=== PATIENT | female | born 1975 | race Caucasian/White ===

== ENCOUNTER 2022-12-10 15:26 | Outpatient (REF) | payer OTHER, SELFPAY ==
--- NOTE | ~2022-12-10 | XR_ITS ---
EXAMINATION: XR CHEST CLINICAL INFORMATION: J20.9 - Acute bronchitis, unspecified COMPARISON: None available. TECHNIQUE: 2 views of the chest were obtained. FINDINGS: The lungs are clear. There is no hyperinflation or coarsening of the bronchiolar markings, airspace consolidation, groundglass opacity. The costophrenic sulci are well-defined. The heart is normal in size. The hilar and mediastinal contours are normal. No visible acute bony abnormality. XR/XR chest 2V IMPRESSION: Lungs clear. No hyperinflation.
== END 2022-12-10 15:27 | disposition home or self-care (01) ==
LOC: HO.XRAY 15:26
PROVIDERS: Visit Provider Nurse Practitioner Family
DX: J20.9 Acute bronchitis, unspecified (principal)
CPT/HCPCS: 71046

== ENCOUNTER 2022-12-11 11:49 | Outpatient (REF) | payer OTHER, SELFPAY ==
[2022-12-11 13:02] LABS: Influenza A PCR NEGATIVE (Negative); Influenza B PCR NEGATIVE (Negative); Resp Syncy Virus RNA Qual PCR NEGATIVE (Negative); SARS COV2 PCR INHOUSE NEGATIVE (Negative)
== END 2022-12-11 11:50 | disposition home or self-care (01) ==
LOC: HO.LNP 11:49
PROVIDERS: Visit Provider Nurse Practitioner Family
DX: J20.9 Acute bronchitis, unspecified (principal); Z20.822 Contact with and (suspected) exposure to COVID-19
CPT/HCPCS: 0241U

== ENCOUNTER 2024-11-13 13:52 | Outpatient (AMB) | payer OTHER, SELFPAY ==
--- NOTE | 2024-11-13 13:59 | A.OFFPC_ITS ---
Vital Signs 11/13/24 14:31 Height 5 ft 6.3 in Weight 212 lb 8 oz BMI 34.0 BP 98/62 Blood Pressure Location Rt brachial Position Sitting Respiration 14 Pulse 78 Pulse Source Pulse Oximeter Pulse Oximetry (%) 99 Oxygen Delivery Method Room Air Intake Visit Reasons: EstablishCareNP Intake Note: New patient visit. Sliver Handler Required: No Allergies No Known Allergies Allergy (Verified 11/13/24 14:00) Tobacco use date assessed: 11/13/24 Dental Screening Dental Screen Date: 11/13/24 Did you have a dental visit in the last 12 months?: Yes Did you have a dental problem in the last 6 months where you did not have access to dental care?: No Was dental information given to patient?: Patient has dentist HPI HPI Comments History of Present Illness Details This is a 49-year-old female with a past medical history of prediabetes, obesity, low vitamin-D, depression with anxiety, RLS, concussion, chronic neck pain, chronic headaches, sleep apnea and mild memory impairment presenting to [facility]. She transferred from [facility]. Records transfer pending. Prediabetes, obesity-patient was diagnosed with prediabetes in the fall of 2023. She tried metformin, but it was ineffective. Her hemoglobin A1c today is 5.7%. The patient was on compounded semaglutide, but it was too expensive. She is seeking a prescription for another GLP 1. She is doing yoga classes. She has decreased portion sizes and carbohydrates and sugars in her diet. She has not been able to lose weight successfully despite doing this for greater than 6 months. She also endorses a history of hyperlipidemia. She is not on medications for this. She denies history of thyroid problems. The patient has anxiety and depression , and she is treated with sertraline and bupropion. She is not sure if bupropion is making a big difference, but she does not want to increase it at this time. She discusses that there are some intimacy issues in her marriage, and she has a child with special needs. 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 Patient reports she was evaluated by Dr. Arechiga after a concussion 4 years ago. She had head trauma after a gate fell on her head. She says since then she has dealt with some mild memory impairment. She also sees Dr. Roque at [facility] for treatment of chronic headaches and neck pain. She has tried muscle relaxers. She was recently prescribed nabumetone as needed. She admits that she should ?be wearing glasses?, and she has obstructive sleep apnea, but she has not been using her CPAP recently. Patient reports she had an x-ray of the cervical spine which showed degenerative disc disease. She did physical therapy which helped. She is going to return to physical therapy again. She takes gabapentin 100 mg q.i.d. for restless leg and head and neck pain. She is followed by [facility]. ROS: Constitutional: No unexplained weight loss, fever, chills or night sweats. Eyes: No vision changes, blurry vision, double vision Neurologic: No syncope, tremors, seizures Musculoskeletal: see HPI Physical exam: Constitutional: Alert, in no distress. Head: Normocephalic. Neck: Supple, Full range of motion. No lymphadenopathy. No palpable thyroid masses. Respiratory: Clear to auscultation. Cardiovascular: S1 S2 regular. No murmurs. Neurologic: No focal neurological deficits. Psychiatric: Normal mood and affect [facility] Medical History (Updated 11/14/24 @ 09:15 by ELISSA Richmond) Anxiety and depression Concussion Mild memory disturbance Hyperlipidemia Chronic headaches Chronic neck pain Pre-diabetes Obesity Low vitamin D level Surgical History H/O dilation and curettage Family History Mother Anxiety Father Diabetes HTN (hypertension) Heart disease Thyroid disease Brother Diabetes Other FH: mental illness Substance abuse Social History (Updated 11/13/24 @ 16:37 by Yaneli Driver CMA) Housing: House Alcohol intake: current Patient Tobacco Use Status: Former Tobacco user Cigarette Packs Per Day: 0.5 Years Smoked: 15 e-Cigarette/Vaping Use: Never Used Second Hand Smoke Exposure: No service: No 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 Had a concussion a couple years ago.) Hearing needs: No Vision needs: Yes (glasses) Questionnaire PHQ-9 Over the last 2 weeks, how often have you been bothered by any of the following problems? 1. Little interest or pleasure in doing things: not at all 2. Feeling down, depressed, or hopeless: not at all 3. Trouble falling or staying asleep, or sleeping too much: several days 4. Feeling tired or having little energy: several days 5. Poor appetite or overeating: several days 6. Feeling bad about yourself - or that you are a failure or have let yourself or your family down: not at all 7. Trouble concentrating on things, such as reading the newspaper or watching television: not at all 8. Moving or speaking so slowly that other people could have noticed. Or the op posite - being so fidgety or restless that you have been moving around a lot more than usual: several days 9. Thoughts that you would be better off or of hurting yourself in some way: not at all Total score: 4 Depression Screening Interpretation: Positive Depression Screening Follow-up: Existing condition and In treatment Depression Screening Done: Yes 41412 - PHQ-9 Billing: Yes Source: Developed by Drs. Ad Hudson, Jailene Bell, Kevin López and colleagues, with an educational kennedy from [employer]. Thrive Questionnaire Date Thrive assessed: 11/13/24 I am a: Patient What is your living situation today?: I have a steady place to live Within the past 12 months, did the food you bought not last and you didn't have the money to get more?: Never true Within the past 12 months, did you worry whether your food would run out before you got money to buy more?: Never true Do you have trouble paying for medicines?: No Do you have trouble getting transportation to medical appointments?: No Do you have trouble paying your heating and electricity bill?: No Do you have trouble taking care of your child, family member or friend?: I choose not to answer this question Do you have trouble with day-to-day activities such as bathing, preparing meals, shopping, managing finances, etc.?: No Are you currently unemployed and looking for a job?: No Are you interested in more education?: Yes Please select the resources that you would like help with: Care for elder or disabled Currently or been in a relationship where the following occur: No concerns reported THRIVE Score: 0 AUDIT C Alcohol Use Questionnaire (AUDIT-C) 1. How often do you have a drink containing alcohol?: Monthly or less 2. How many drinks containing alcohol do you have on a typical day when you are drinking?: 1 or 2 3. How often do you have six or more drinks on one occasion?: Never Total Score: 1 CHING-7 AMB Questionnaire CHING-7 Date CHING - 7 assessed: 11/13/24 Feeling nervous, anxious, or on edge: 1 = Several days Not being able to stop or control worryin = Several days Worrying too much about different things: 1 = Several days Trouble relaxin = Several days Being so restless that it is hard to sit still: 0 = Not at all Becoming easily annoyed or irritable: 1 = Several days Feeling afraid as if something awful might happen: 0 = Not at all Total CHING-7 score (0-4 normal; 5-9 mild; 10-14 moderate; 15-21 severe): 5 Source: Developed by Drs. Ad Hudson, Jailene Bell, Kevin López and colleagues, with an educational kennedy from [employer]. CHING-7 Assessment Billing CHING-7 Assessment Tool: CHING-7 Assessment 62091 Physical exam (Primary Care) Vital Signs: Last Vital Signs Pulse 78 11/13/24 14:31 Resp 14 11/13/24 14:31 BP 98/62 11/13/24 14:31 Pulse Ox 99 11/13/24 14:31 Oxygen Delivery Method Room Air 11/13/24 14:31 BMI result Body Mass Index 34.0 Tobacco/Smoking Status: Tobacco use Status Tobacco use date assessed 11/13/24 11/13/24 14:06 Patient Tobacco Use Status Former Tobacco user 11/13/24 14:00 e-Cigarette/Vaping Use Never Used 11/13/24 14:16 PHQ-9: PHQ-9 Score PHQ-9: Total score 4 11/14/24 09:18 Depression Screening Interpretation: Positive Depression Screening Follow-up: Existing condition and In treatment Thrive Assessment: Date of Thrive Assessment Date Thrive assessed 11/13/24 11/13/24 16:37 Currently or been in a relationship where the following occur: No concerns reported Coding Level of Care Code New Pt Level 4 (08902) Complex EM visit Add On G2211 Diagnoses Mild memory disturbance R41.3 Concussion S06.0XAA Encounter type: sequela Hyperlipidemia, unspecified hyperlipidemia type E78.5 Hyperlipidemia type: unspecified Chronic post-traumatic headache, not intractable G44.329 Headache type: post-traumatic Intractability: not intractable Chronic neck pain M54.2; G89.29 Pre-diabetes R73.03 Obesity E66.9 Obesity classification: adult class 1 (BMI 30 - 34.9) Obesity type: due to excess calories Serious obesity comorbidity presence: with serious comorbidity Low vitamin D level R79.89 Additional Codes CHING-7 Assessment Billing - CHING-7 Assessment Tool: CHING-7 Assessment 08448 ([id number]) PHQ-9 - 43907 - PHQ-9 Billing: Yes ([id number]) Assessment & Plan Assessment & Plan (1) Mild memory disturbance: Code(s): R41.3 - Other amnesia Category: Medical (2) Concussion: Code(s): S06.0XAA - Concussion with loss of consciousness status unknown, initial encounter Category: Medical Qualifiers: Encounter type: sequela (3) Hyperlipidemia: Code(s): E78.5 - Hyperlipidemia, unspecified Category: Medical Qualifiers: Hyperlipidemia type: unspecified Qualified Code(s): E78.5 - Hyperlipidemia, unspecified (4) Chronic headaches: Code(s): R51.9 - Headache, unspecified; G89.29 - Other chronic pain Category: Medical Qualifiers: Headache type: post-traumatic Intractability: not intractable Qualified Code(s): G44.329 - Chronic post-traumatic headache, not intractable (5) Chronic neck pain: Code(s): M54.2 - Cervicalgia; G89.29 - Other chronic pain Category: Medical (6) Pre-diabetes: Code(s): R73.03 - Prediabetes Category: Medical (7) Obesity: Code(s): E66.9 - Obesity, unspecified Category: Medical Qualifiers: Obesity classification: adult class 1 (BMI 30 - 34.9) Obesity type: due to excess calories Serious obesity comorbidity presence: with serious comorbidity (8) Low vitamin D level: Code(s): R79.89 - Other specified abnormal findings of blood chemistry Category: Medical Plan In summary this is a 49-year-old female who presented to [facility]. Records transfer pending. The patient reports she felt much better on a GLP 1, but compounded semaglutide was too expensive. Given prediabetes and hyperlipidemia she is a good candidate for a GLP 1. She denies contraindications to this type of medication. I will submit that bound to the pharmacy. She will also have new fasting labs completed. We discussed lifestyle modifications including restricting portion sizes, following a low carbohydrate, low sugar diet, avoiding alcohol and exercising regularly. I spoke with her about referral to behavioral health for Psychology and psychiatric evaluation. Anxiety and depression may be contributing to her memory concerns. She also suffered a concussion in the past. She also may have undiagnosed ADHD. No doubt lack of using a CPAP and wearing her glasses regularly as contributing to some of her symptoms. Patient is going to try using CPAP and glasses regularly. She defers referral today, but we will revisit this again at her follow up appointment. She will continue bupropion and sertraline for now. I also discussed referral to the headache clinic. We discussed that headaches are likely multifactorial in her case. She is going to think about this. She is seeing Dr. Roque currently. Reviewed the importance of sleep, hydration and stress reduction when possible. She will have labs completed. She will follow up with me in 6 weeks for re-evaluation. Orders: Orders Comprehensive Met. Panel 11/13/24 E66.9 - Obesity, unspecified, R73.03 - Prediabetes, R79.89 - Other specified abnormal findings of blood chemistry Vitamin D 25-OH (D2 and D3) 11/13/24 E66.9 - Obesity, unspecified, M85.80 - Other specified disorders of bone density and structure, unspecified site, R73.03 - Prediabetes, R79.89 - Other specified abnormal findings of blood chemistry Vitamin B12 11/13/24 Z91.89 - Other specified personal risk factors, not elsewhere classified Lipid Panel 11/13/24 E66.9 - Obesity, unspecified, E78.5 - Hyperlipidemia, unspecified, R73.03 - Prediabetes, R79.89 - Other specified abnormal findings of blood chemistry TSH reflex Free T4 11/13/24 E66.9 - Obesity, unspecified, R73.03 - Prediabetes, R79.89 - Other specified abnormal findings of blood chemistry Complete Blood Count no Diff 11/13/24 E66.9 - Obesity, unspecified, R73.03 - Prediabetes, R79.89 - Other specified abnormal findings of blood chemistry Hemoglobin A1c 11/13/24 E11.9 - Type 2 diabetes mellitus without complications, E66.9 - Obesity, unspecified, R73.03 - Prediabetes, R79.89 - Other specified abnormal findings of blood chemistry Medications: New tirzepatide (weight loss) (Zepbound) for 4 weeks 2.5 mg (0.5 mL) subcut QWEEK 2 mL 0RF
[2024-11-13 14:31] VITALS: BP 98/62; PULSE 78; RESP 14; O2SAT 99; BMI 34.0
--- OUTSIDE RECORDS SUMMARY | 2024-11-13 16:25 | XMS_ITS | Continuity of Care Document ---
Author Name [facility] Organization [facility] Care Team Providers Care Mobile Home Park Manager Name Role Phone [facility] Unavailable Unavailable Immunizations Combined list of available immunizations from the Department of Defense and Veterans Affairs facilities. Immunization Series Date Given Administered By Site Reaction Lot Number CVX Code Drug Casing Mixer Status Comments Source COVID-19 (MODERNA), MRNA, LNP-S, PF, 100 MCG/0.5 ML DOSE 2 2020 207 complet ed [facility] JERONIMO-19 (MODERNA), MRNA, LNP-S, PF, 100 MCG/0.5 ML DOSE 1 2020 207 complet ed [facility]
--- OUTSIDE RECORDS SUMMARY | 2024-11-13 16:25 | XMS_ITS | Continuity of Care Document ---
Author Organization [facility] Address [address] [place] [id number]- Care Team Providers Care Clinical Reviewer Name Role Phone Donny NICHOLAS, Melina Tran Primary Care Physician Encounter [facility] Date(s): 09/22/24 - 10/22/24 [facility] and [address] [address]- Attending Physician: Cassie Casillas Admitting Physician: Cassie Casillas Referring Physician: Admtr [id number] Encounter Type: Triage Allergies, Adverse Reactions, Alerts No Known Medication Allergies Substance Criticality Severity Reaction Reaction Severity Status Latex Active Immunizations Given and Recorded Vaccine Date Status Refusal Reason influenza virus vaccine, inactivated 07/30/24 Lambert rded influenza virus vaccine, inactivated 07/11/21 Lambert rded influenza virus vaccine, inactivated 06/28/18 Lambert rded influenza virus vaccine, inactivated 06/26/17 Lambert rded SARS-CoV-2(COVID-19)mRNA-LNP vac([id number]) 07/30/24 Recorded SARS-CoV-2 (COVID-19) mRNA-1273 vaccine 08/01/21 R ecorded SARS-CoV-2 (COVID-19) mRNA-1273 vaccine 10/15/20 R ecorded SARS-CoV-2 (COVID-19) mRNA-1273 vaccine 09/17/20 R ecorded tetanus/diphtheria/pertussis, acel(Tdap) 06/28/18 Recorded tetanus/diphtheria/pertussis, acel(Tdap) 1 08/09/12 Given tetanus/diphtheria/pertussis, acel(Tdap) 07/18/07 Recorded tetanus-diphtheria toxoids (Td) 11/11/98 Recorded 1Admin Note: VIS sheet dated 10/06/2011 Medications buPROPion 150 mg/24 hours (XL) oral tablet, extended release 1 tablet, By Mouth, Every 24 hours, # 90 tablet, 1 Refills, Maintenance, 08/22/24 1:59:00 PM EST, [facility] #[id number], 1 tablet By Mouth Every 24 hours, 170, cm, 07/20/24 15:22:00 EST, Height,98.8, kg, 12/26/23 8:36:00 EDT, Dry Weight Start Date: 08/22/24 Status: Ordered Quantity: 90.0 Unit: tablet Repeat number: 2 Estradiol Patch 0.025 mg/24 hours weekly transdermal film, extended release APPLY 1 PATCH TOPICALLY TO THE SKIN EVERY WEEK Start Date: 08/28/24 Status: Ordered Repeat number: 1 gabapentin 100 mg oral capsule 100 mg, 1, capsule, By Mouth, 4 times a day, # 120 capsule, Refills 1, Tot. Refills 1, Maintenance,10/10/24 3:19:00 PM EST, Route to Pharmacy Electronically, [facility] #[id number], Partial fill upon patient request if the prescription is for a schedule II opioid drug., 170, cm, 09/22/24 15:12:00 EST, Height, 98.8, kg, 12/26/23 8:36:00 EDT, Dry Weight Start Date: 10/10/24 Stop Date: 12/09/24 Status: Ordered Quantity: 120.0 Unit: capsule Repeat number: 2 Mounjaro 2.5 mg/0.5 mL subcutaneous solution = 2.5 mg, Subcutaneous Injection, Every week, rotate injection sites, # 4 each, 0 Refills, Maintenance, 09/25/24 4:39:00 PM EST, Solution, [facility] #[id number], Partial fill upon patient requestif the prescription is for a schedule II opioid drug., 170, cm, 09/22/24 15:12:00 EST, Height, 98.8, kg, 12/26/23 8:36:00 EDT, Dry Weight Start Date: 09/25/24 Status: Ordered Quantity: 4.0 Unit: each Repeat number: 1 Indication: Prediabetes nabumetone 500 mg oral tablet 1 tablet = 500 mg, By Mouth, 2 times a day, # 60 tablet, 2 Refills, Maintenance, 09/22/24 4:15:00 PMEST, Tablet, [facility] #[id number], Partial fill upon patient request if the prescription is for a schedule II opioid drug., 170, cm, 09/22/24 15:12:00 EST, Height, 98.8, kg, 12/26/23 8:36:00 EDT, Dry Weight Start Date: 09/22/24 Status: Ordered Quantity: 60.0 Unit: tablet Repeat number: 3 progesterone 100 mg oral capsule TAKE 1 CAPSULE BY MOUTH EVERY DAY Start Date: 08/28/24 Status: Ordered Repeat number: 1 sertraline 100 mg oral tablet 2 tablet, By Mouth, Daily, # 180 tablet, 1 Refills, Maintenance, 06/16/24 12:28:00 PM EDT, [facility] #[id number], 170, cm, 06/16/24 12:01:00 EDT, Height, 98.8, kg, 12/26/23 8:36:00 EDT, Dry Weight Start Date: 06/16/24 Status: Ordered Quantity: 180.0 Unit: tablet Repeat number: 2 Problem List Condition Confirmation Course Effective Dates Status Health Status Informant Chronic headache Confirmed Active Depression Confirmed Active Fatigue Confirmed Active CHING (generalized anxiety disorder) Confirmed Active Hypercholesteremia Confirmed Active Mixed hyperlipidemia Confirmed Active Neck pain Confirmed Active Obese class I Confirmed Active Obese Confirmed Active Post concussion syndrome Confirmed Active Prediabetes Confirmed Active Serrated polyp of colon 1 Confirmed 12/03/22 Active Dry eye syndrome Confirmed Active 1repeat screening colonoscopy in 2027 Social History Social History Type Response Smoking Status Former smoker, quit more than 30 days ago entered on: 10/21/18 Sex Sex Representation Female (finding) Hospital Progress note * Nia Archer: PERFORM, SIGN, VERIFY Event Display: Progress Note Hospital Authored Date: [id number] Patient: ELLIOT MORA Age: 44 years Sex: Female : 1975 Associated Diagnoses: None Author: Nia Archer 11/23/2019 To Whom it May Concern The above patient is currently under my care for a concussion. She is unable to participate in PT as it has been placed on hold due to Stay at Home order placed by [employer]. [employer] and won't be able to participate in PT until 01/01/20 or later. Sincerely, Nia Dietrich PA-C [facility] [address] [place] [address], [address] [place] [address] Patient Care team information Care Team Personnel Name: Nadir Peralta RN Position: [facility] AMB Nurse Member Role: Primary Care Nurse Name: Nini FRENCH, González Rodriguez Position: [facility] ED RN W/OE and Tasks Member Role: Primary Care Nurse Name: Donny NICHOLAS, Melina Tran Position: [facility] PCO Associate Professional Member Role: PCP Address: [address] [place] [address] [address] Telecom: Care Team Related Persons Name: TYRONE MORA Name: NANCY NAYLOR Insurance Providers Guarantor name: ELLIOT MORA Health Plan Information #: 1 Payer: [employer] PPO Member Number: NA Policy Number: NA Group Number: [id number]
== END 2024-11-13 15:06 | disposition home or self-care (01) ==
PROVIDERS: PCP Physician Assistant Medical; Visit Provider Physician Assistant Medical
DX: R41.3 Other amnesia (principal); S06.0XAA Concussion with loss of consciousness status unknown, initial encounter; E66.9 Obesity, unspecified; Z68.34 Body mass index [BMI] 34.0-34.9, adult; E78.5 Hyperlipidemia, unspecified; G44.329 Chronic post-traumatic headache, not intractable; M54.2 Cervicalgia; G89.29 Other chronic pain; R73.03 Prediabetes; R79.89 Other specified abnormal findings of blood chemistry

== ENCOUNTER → 2024-11-13 13:52 | Outpatient (BNVA) | payer OTHER, SELFPAY | PROVIDERS: PCP Physician Assistant Medical; Visit Provider Physician Assistant Medical | DX: R41.3 Other amnesia (principal); S06.0XAA Concussion with loss of consciousness status unknown, initial encounter; E78.5 Hyperlipidemia, unspecified; G44.329 Chronic post-traumatic headache, not intractable; G89.29 Other chronic pain; M54.2 Cervicalgia; R73.03 Prediabetes; E55.9 Vitamin D deficiency, unspecified; E66.9 Obesity, unspecified; Z68.34 Body mass index [BMI] 34.0-34.9, adult | CPT/HCPCS: 96127 ==

== ENCOUNTER 2024-11-23 08:16 | Outpatient (REF) | payer OTHER, SELFPAY ==
--- OUTSIDE RECORDS SUMMARY | 2024-11-23 08:38 | XMS_ITS | Continuity of Care Document ---
Author Name [facility] Organization [facility] Care Team Providers Care Quality Improvement Consultant Name Role Phone [facility] Unavailable Unavailable Immunizations Combined list of available immunizations from the Department of Defense and Veterans Affairs facilities. Immunization Series Date Given Administered By Site Reaction Lot Number CVX Code Drug Compilation Clerk Status Comments Source COVID-19 (MODERNA), MRNA, LNP-S, PF, 100 MCG/0.5 ML DOSE 2 2020 207 complet ed [facility] JERONIMO-19 (MODERNA), MRNA, LNP-S, PF, 100 MCG/0.5 ML DOSE 1 2020 207 complet ed [facility]
[2024-11-23 11:45] LABS: Hematocrit 41.8 % (37.0-47.0); Hemoglobin 13.1 g/dl (12.0-16.0); Mean Corpuscular HGB Conc 31.3 g/dl (31.0-35.0); Mean Corpuscular Hemoglobin 27.6 pg (27.0-33.0); Mean Platelet Volume 11.2 fL (9.4-12.3); Platelet Count 130 X10*3/uL (160-400); Red Blood Count 4.75 X10*6/uL (4.20-5.50); Red Cell Distribution Width 13.9 % (11.0-16.0); White Blood Count 3.7 X10*3/uL (4.8-10.8)
[2024-11-23 11:47] LABS: Estimated Average Glucose 117 mg/dL; Hemoglobin A1c % 5.7 % (<6.0)
[2024-11-23 12:24] LABS: Alanine Aminotransferase 32 U/L (0-31); Albumin Level 4.2 g/dL (3.5-5.0); Alkaline Phosphatase 92 U/L (39-117); Anion Gap 11 (12-20); Aspartate Amino Transferase 27 U/L (5-31); Bilirubin Total 0.3 mg/dL (0.0-1.0); Blood Urea Nitrogen 17 mg/dL (9-16); Calcium 9.3 mg/dL (8.4-10.2); Carbon Dioxide 29 mmol/L (22-29); Chloride 109 mmol/L (96-108); Cholesterol 226 mg/dL (<200); Estimated Glomerular Filt Rate 48; Glucose Random 100 mg/dL (60-115); HDL Cholesterol 45 mg/dL (>40); LDL Cholesterol Calculated 116 mg/dL (<100); Potassium 4.5 mmol/L (3.3-5.1); Sodium 144 mmol/L (135-145); Total Protein 7.3 g/dL (6.5-8.0); Triglycerides 327 mg/dL (<150)
[2024-11-23 12:28] LABS: TSH reflex Free T4 2.44 uIU/mL (0.32-4.0)
[2024-11-23 12:32] LABS: Vitamin B12 318 pg/mL (200-900)
[2024-11-28 06:24] LABS: Vitamin D 25-OH, D2 <4 ng/mL; Vitamin D 25-OH, D3 21 ng/mL; Vitamin D 25-OH, Total 21 ng/mL (30-100)
== END 2024-11-23 08:17 | disposition home or self-care (01) ==
LOC: HO.WFDLDS 08:16
PROVIDERS: Visit Provider Physician Assistant Medical
DX: R79.89 Other specified abnormal findings of blood chemistry (principal); E78.5 Hyperlipidemia, unspecified; E66.9 Obesity, unspecified; Z91.89 Other specified personal risk factors, not elsewhere classified; M85.80 Other specified disorders of bone density and structure, unspecified site; E11.9 Type 2 diabetes mellitus without complications
CPT/HCPCS: 36415; 80053; 80061; 82306; 82607; 83036; 84443; 85027

== ENCOUNTER 2024-12-13 13:47 | Outpatient (REF) | payer OTHER, SELFPAY ==
--- OUTSIDE RECORDS SUMMARY | 2024-12-13 16:29 | XMS_ITS | Continuity of Care Document ---
Author Name [facility] Organization [facility] Care Team Providers Care L Tacker Name Role Phone [facility] Unavailable Unavailable Immunizations Combined list of available immunizations from the Department of Defense and Veterans Affairs facilities. Immunization Series Date Given Administered By Site Reaction Lot Number CVX Code Drug Manager Hospice Status Comments Source COVID-19 (MODERNA), MRNA, LNP-S, PF, 100 MCG/0.5 ML DOSE 2 2020 207 complet ed [facility] COVCYNTHIA-19 (MODERNA), MRNA, LNP-S, PF, 100 MCG/0.5 ML DOSE 1 2020 207 complet ed [facility]
[2024-12-13 18:13] LABS: Baso%MD 1.1 %; Eos%MD 1.6 %; Hematocrit 41.2 % (37.0-47.0); Hemoglobin 13.7 g/dl (12.0-16.0); IG%MD 0.2 %; Lymph%MD 31.2 %; Mean Corpuscular HGB Conc 33.3 g/dl (31.0-35.0); Mean Corpuscular Hemoglobin 28.1 pg (27.0-33.0); Mean Corpuscular Volume 84.4 fL (80.0-98.0); Mean Platelet Volume 11.2 fL (9.4-12.3); Neut%MD 58.9 %; Platelet Count 143 X10*3/uL (160-400); Red Blood Count 4.88 X10*6/uL (4.20-5.50); Red Cell Distribution Width 13.5 % (11.0-16.0); White Blood Count 4.4 X10*3/uL (4.8-10.8)
[2024-12-13 18:44] LABS: Alanine Aminotransferase 26 U/L (0-31); Albumin Level 4.6 g/dL (3.5-5.0); Alkaline Phosphatase 82 U/L (39-117); Anion Gap 11 (12-20); Aspartate Amino Transferase 26 U/L (5-31); Bilirubin Total 0.4 mg/dL (0.0-1.0); Blood Urea Nitrogen 19 mg/dL (9-16); Calcium 9.7 mg/dL (8.4-10.2); Carbon Dioxide 26 mmol/L (22-29); Chloride 109 mmol/L (96-108); Estimated Glomerular Filt Rate 54; Glucose Random 99 mg/dL (60-115); Iron 78 mcg/dL (30-160); Percent Iron Saturation 24 % (15-50); Potassium 4.1 mmol/L (3.3-5.1); Sodium 142 mmol/L (135-145); Total Iron Binding Capacity 325 mcg/dL (228-428); Total Protein 7.4 g/dL (6.5-8.0); Unsaturated Iron Binding 247 ug/dL
[2024-12-13 18:49] LABS: Ferritin 105 ng/mL (10-250)
[2024-12-13 18:59] LABS: Vitamin B12 550 pg/mL (200-900)
[2024-12-13 20:11] LABS: Atypical Lymph Absolute Manual 0.3 x10*3/uL; Atypical Lymphs Percent Manual 6 % (0-6); Eosinophils Absolute Manual 0.1 X10*3/uL (0.0-0.4); Eosinophils Percent Manual 3 % (0-4); Lymphocytes Absolute Manual 0.8 X10*3/uL (1.2-4.9); Lymphocytes Percent Manual 19 % (20-40); Monocytes Absolute Manual 0.1 X10*3/uL (0.1-1.2); Monocytes Percent Manual 2 % (2-11); Neutrophils Percent Manual 70 % (45-73); RBC Morphology NORMAL
[2024-12-13 20:12] LABS: Large Platelet PRESENT; Platelet Estimate DECREASED (NORMAL); Platelet Morphology Comment NORMAL
[2024-12-13 20:18] LABS: Band Neutrophils Percent 0 % (3-5); Neutrophils Absolute Manual 3.1 X10*3/uL (2.0-8.3)
== END 2024-12-13 13:48 | disposition home or self-care (01) ==
LOC: HO.WFDLDS 13:47
PROVIDERS: Visit Provider Physician Assistant Medical
DX: R94.4 Abnormal results of kidney function studies (principal); R79.89 Other specified abnormal findings of blood chemistry; E11.9 Type 2 diabetes mellitus without complications; Z91.89 Other specified personal risk factors, not elsewhere classified
CPT/HCPCS: 36415; 80053; 82043; 82570; 82607; 82728; 83540; 85007; 85027

== ENCOUNTER 2024-12-28 10:06 | Outpatient (AMB) | payer OTHER, SELFPAY ==
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
[2024-12-28 10:15] VITALS: BP 104/62; PULSE 76; RESP 14; TEMP 36.4; O2SAT 98; BMI 33.5
--- OUTSIDE RECORDS SUMMARY | 2024-12-28 11:55 | XMS_ITS | Continuity of Care Document ---
Author Name [facility] Organization [facility] Care Team Providers Care Meat Butcher Name Role Phone [facility] Unavailable Unavailable Immunizations Combined list of available immunizations from the Department of Defense and Veterans Affairs facilities. Immunization Series Date Given Administered By Site Reaction Lot Number CVX Code Drug Tour Counselor Status Comments Source COVID-19 (MODERNA), MRNA, LNP-S, PF, 100 MCG/0.5 ML DOSE 2 2020 207 complet ed [facility] COVCYNTHIA-19 (MODERNA), MRNA, LNP-S, PF, 100 MCG/0.5 ML DOSE 1 2020 207 complet ed [facility]
== END 2024-12-28 10:55 | disposition home or self-care (01) ==
LOC: HO.HMCFM 10:06
PROVIDERS: PCP Physician Assistant Medical; Visit Provider Physician Assistant Medical
DX: R22.41 Localized swelling, mass and lump, right lower limb (principal); R41.840 Attention and concentration deficit; R25.3 Fasciculation; R80.9 Proteinuria, unspecified; R94.4 Abnormal results of kidney function studies; F41.9 Anxiety disorder, unspecified; F32.A Depression, unspecified; S06.0XAA Concussion with loss of consciousness status unknown, initial encounter; R41.3 Other amnesia; R79.89 Other specified abnormal findings of blood chemistry

== ENCOUNTER → 2024-12-28 10:06 | Outpatient (BNVA) | payer OTHER, SELFPAY | PROVIDERS: PCP Physician Assistant Medical; Visit Provider Physician Assistant Medical | DX: R73.03 Prediabetes (principal); E66.9 Obesity, unspecified; R22.41 Localized swelling, mass and lump, right lower limb; R41.840 Attention and concentration deficit; R25.3 Fasciculation; R80.9 Proteinuria, unspecified; R94.4 Abnormal results of kidney function studies; F41.9 Anxiety disorder, unspecified; F32.A Depression, unspecified; R41.3 Other amnesia; R79.89 Other specified abnormal findings of blood chemistry; S06.0XAA Concussion with loss of consciousness status unknown, initial encounter; X58.XXXA Exposure to other specified factors, initial encounter; Y93.9 Activity, unspecified; Y92.9 Unspecified place or not applicable; Y99.9 Unspecified external cause status; Z68.33 Body mass index [BMI] 33.0-33.9, adult | CPT/HCPCS: 96127 ==

== ENCOUNTER 2024-12-28 11:16 | Outpatient (REF) | payer OTHER, SELFPAY ==
--- OUTSIDE RECORDS SUMMARY | 2024-12-28 13:55 | XMS_ITS | Continuity of Care Document ---
Author Name [facility] Organization [facility] Care Team Providers Care Oem Sales Manager Name Role Phone [facility] Unavailable Unavailable Immunizations Combined list of available immunizations from the Department of Defense and Veterans Affairs facilities. Immunization Series Date Given Administered By Site Reaction Lot Number CVX Code Drug Accounting Analyst Status Comments Source COVID-19 (MODERNA), MRNA, LNP-S, PF, 100 MCG/0.5 ML DOSE 2 2020 207 complet ed [facility] [place] COVCYNTHIA-19 (MODERNA), MRNA, LNP-S, PF, 100 MCG/0.5 ML DOSE 1 2020 207 complet ed [facility] [place]
[2024-12-28 14:48] LABS: Rheumatoid Factor < 13.0 IU/mL (<15.0)
[2024-12-28 15:14] LABS: Erythrocyte Sedimentation Rate 12 MM/HR (0-20)
[2024-12-29 06:23] LABS: Lyme Abs Screen <0.90 index
[2025-01-02 15:28] LABS: Anti Nuclear Antibody Pattern Nuclear, Homogeneous; Anti Nuclear Antibody Screen POSITIVE (NEGATIVE)
== END 2024-12-28 11:17 | disposition home or self-care (01) ==
LOC: HO.WFDLDS 11:16
PROVIDERS: Visit Provider Physician Assistant Medical
DX: R25.3 Fasciculation (principal)
CPT/HCPCS: 36415; 82550; 85652; 86038; 86039; 86431; 86617; 86618

== ENCOUNTER 2025-01-11 11:24 | Outpatient (AMB) | payer OTHER, SELFPAY ==
[2025-01-11 11:28] VITALS: BP 118/72; BMI 34.2
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
== END 2025-01-11 11:59 | disposition home or self-care (01) ==
LOC: HO.HKA 11:25
PROVIDERS: PCP Physician Assistant Medical; Referring Provider Physician Assistant Medical; Visit Provider Internal Medicine Hypertension Specialist
DX: R80.9 Proteinuria, unspecified (principal); R94.4 Abnormal results of kidney function studies; R73.03 Prediabetes; E66.9 Obesity, unspecified; R76.8 Other specified abnormal immunological findings in serum
CPT/HCPCS: 99204

== ENCOUNTER 2025-01-11 11:24 | Outpatient (REF) | payer OTHER, SELFPAY ==
[2025-01-11 13:04] LABS: Appearance Urine Clear; Color Urine Yellow; Glucose Urine UA Negative (Negative); Leukocyte Esterase Urine Negative (Negative); Nitrite Urine Negative (Negative); Specific Gravity - Urine <= 1.005 (1.005-1.025); Urine Blood Negative (Negative); Urine Ketones Negative (Negative); Urine Protein Negative (Neg-Trace)
[2025-01-11 14:19] LABS: Creatinine Urine 23.41 mg/dL; Total Protein Urine Random < 7 mg/dL (<12)
[2025-01-11 14:47] LABS: Anion Gap 15 (12-20); Blood Urea Nitrogen 19 mg/dL (9-16); Calcium 9.3 mg/dL (8.4-10.2); Carbon Dioxide 25 mmol/L (22-29); Chloride 106 mmol/L (96-108); Estimated Glomerular Filt Rate 55; Glucose Random 93 mg/dL (60-115); Potassium 3.8 mmol/L (3.3-5.1); Sodium 142 mmol/L (135-145)
[2025-01-12 21:52] LABS: Anti DNA DS Antibody 3 IU/mL
[2025-01-14 16:49] LABS: Prot Elec - Albumin 4.6 g/dL (3.8-4.8); Prot Elec - Alpha1 0.3 g/dL (0.2-0.3); Prot Elec - Alpha2 0.6 g/dL (0.5-0.9); Prot Elec - Beta 1 0.5 g/dL (0.4-0.6); Prot Elec - Beta 2 0.3 g/dL (0.2-0.5); Prot Elec - Gamma 0.9 g/dL (0.8-1.7)
[2025-01-15 11:03] LABS: Complement C3 159 mg/dL (83-193)
[2025-01-15 15:03] LABS: Neutrophil Cyto Ab Screen NEGATIVE (NEGATIVE)
[2025-01-16 22:29] LABS: PTT (LAC) Screen 37 sec (<=40)
== END 2025-01-11 11:25 | disposition home or self-care (01) ==
LOC: HO.LAB 11:24
PROVIDERS: PCP Physician Assistant Medical; Referring Provider Physician Assistant Medical; Visit Provider Internal Medicine Hypertension Specialist
DX: R80.9 Proteinuria, unspecified (principal); E66.9 Obesity, unspecified; R76.8 Other specified abnormal immunological findings in serum; Z79.01 Long term (current) use of anticoagulants
CPT/HCPCS: 36415; 80048; 81003; 82570; 84156; 84165; 85597; 85598; 85613; 85730; 86036; 86160; 86225

== ENCOUNTER 2025-01-13 12:30 | Outpatient (REF) | payer OTHER, SELFPAY ==
[2025-01-13 13:46] LABS: Creatinine, mg/dL 97.07; Protein mg/dL 16 mg/dL
[2025-01-13 14:39] LABS: Creatinine, 24Hr Urine 1.1 G/Day (1.0-2.0); Protein 24 Hr Urine 180 mg/Day (<150); Total Volume 24 Hour Urine 1125 mL
== END 2025-01-13 12:31 | disposition home or self-care (01) ==
LOC: HO.LNP 12:30
PROVIDERS: Visit Provider Internal Medicine Hypertension Specialist
DX: R94.4 Abnormal results of kidney function studies (principal)
CPT/HCPCS: 84156

== ENCOUNTER 2025-01-15 10:21 | Outpatient (REF) | payer OTHER, SELFPAY ==
--- NOTE | ~2025-01-15 | US_ITS ---
EXAMINATION: ULTRASOUND RENAL, BILATERALLY. CLINICAL INFORMATION: HYPERTENSION. COMPARISON: No priors. TECHNIQUE: Real-time ultrasound of the kidneys using grayscale and color Doppler technique. FINDINGS: Right kidney: 10 x 4 x 4 cm. Volume: 95 cc. Normal echotexture. Normal renal cortical thickness. No solid or cystic lesion. No hydronephrosis. Normal flow on color Doppler interrogation of the renal hilum. Left kidney: 11 x 4 x 5 cm. Volume: 130 cc. Normal echotexture. Normal renal cortical thickness. No solid or cystic lesion. Normal flow on color Doppler interrogation renal hilum. Spleen is enlarged and measures 14 cm in maximum dimension. Spleen vessels are patent. US/US renal BI IMPRESSION: Normal renal ultrasound. Splenomegaly. Electronically signed by: Marcel Hill MD 01/15/2025 10:56 AM EDT
--- NOTE | ~2025-01-15 | US_ITS ---
EXAMINATION: Ultrasound extremity, nonvascular and limited. CLINICAL INFORMATION: Mass/lump, right lower extremity. TECHNIQUE: Real-time ultrasound with a linear transducer in the region of concern, right lower extremity medial aspect of the distal calf using grayscale and color Doppler technique. COMPARISON: None FINDINGS: There is no gross fluid collections or soft tissue mass. There is a questionable 8 mm slightly hyperechoic area without flow on color Doppler interrogation with the indistinct margins. US/US extremity nonvascular IMPRESSION: No solid or cystic lesion. Questionable small 8 mm lipoma versus artifact. Electronically signed by: Marcel Hill MD 01/15/2025 10:58 AM EDT
== END 2025-01-15 10:22 | disposition home or self-care (01) ==
LOC: HO.US 10:21
PROVIDERS: PCP Physician Assistant Medical; Visit Provider Internal Medicine Hypertension Specialist
DX: I10 Essential (primary) hypertension (principal); R80.9 Proteinuria, unspecified; E66.9 Obesity, unspecified; R22.41 Localized swelling, mass and lump, right lower limb
CPT/HCPCS: 76775; 76882

== ENCOUNTER → 2025-01-15 10:23 | Outpatient (BNV) | payer OTHER, SELFPAY | PROVIDERS: PCP Physician Assistant Medical; Visit Provider Radiology Diagnostic Radiology | DX: R22.41 Localized swelling, mass and lump, right lower limb (principal); I10 Essential (primary) hypertension | CPT/HCPCS: 76775; 76882 ==

== ENCOUNTER 2025-02-04 19:48 | Outpatient (REF) | payer OTHER, SELFPAY ==
--- NOTE | ~2025-02-04 | MR_ITS ---
CLINICAL HISTORY: R53.82 - Chronic fatigue, unspecified MR Brain without gadolinium Comparison: None Findings: No restricted diffusion. No intra-axial mass or hemorrhage. No midline shift. No hydrocephalus. Vascular flow voids are intact. Orbital contents are unremarkable. The sinuses and mastoid air cells are clear. No focal bone lesion. IMPRESSION: No acute findings. This document has been electronically signed by: Carolina Minor MD on 02/06/2025 09:22:56
== END 2025-02-04 19:49 | disposition home or self-care (01) ==
LOC: HO.MRI 19:48
PROVIDERS: PCP Physician Assistant Medical; Visit Provider Physician Assistant Medical
DX: G44.329 Chronic post-traumatic headache, not intractable (principal); R53.82 Chronic fatigue, unspecified; R41.840 Attention and concentration deficit; R25.3 Fasciculation; R41.3 Other amnesia
CPT/HCPCS: 70551

== ENCOUNTER → 2025-02-04 19:48 | Outpatient (BNV) | payer OTHER, SELFPAY | PROVIDERS: PCP Physician Assistant Medical; Visit Provider Radiology Diagnostic Radiology | DX: R53.82 Chronic fatigue, unspecified (principal) | CPT/HCPCS: 70551 ==

== ENCOUNTER → 2025-02-08 09:50 | Outpatient (BNV) | payer OTHER, SELFPAY | PROVIDERS: PCP Physician Assistant Medical; Referring Provider Physician Assistant Medical; Visit Provider Internal Medicine | DX: D69.6 Thrombocytopenia, unspecified (principal) | CPT/HCPCS: 99204 ==

== ENCOUNTER 2025-02-27 11:01 | Outpatient (REF) | payer OTHER, SELFPAY ==
[2025-02-27 14:03] LABS: Calcium 9.2 mg/dL (8.4-10.2); Magnesium 2.1 mg/dL (1.6-2.6); Potassium 4.3 mmol/L (3.3-5.1)
[2025-02-27 14:13] LABS: Erythrocyte Sedimentation Rate 13 MM/HR (0-20)
[2025-02-28 14:33] LABS: Anti DNA DS Antibody 3 IU/mL; Antibody to SS-A Antigen <1.0 NEG AI (<1.0 NEG); Antibody to SS-B Antigen <1.0 NEG AI (<1.0 NEG); SM/Ribonucleoprotein Ab <1.0 NEG AI (<1.0 NEG); Smith Protein <1.0 NEG AI (<1.0 NEG)
[2025-02-28 20:54] LABS: Cardiolipin IgG Ab <2.0 GPL-U/mL; Cardiolipin IgM Ab <2.0 MPL-U/mL
[2025-03-02 05:43] LABS: PTT (LAC) Screen 33 sec (<=40)
[2025-03-03 05:38] LABS: Beta-2 Glycoprotein IgA <2.0 U/mL (<20.0); Beta-2 Glycoprotein IgG <2.0 U/mL (<20.0); Beta-2 Glycoprotein IgM <2.0 U/mL (<20.0)
[2025-03-03 14:03] LABS: Aldolase 5.2 U/L (<=8.1)
== END 2025-02-27 11:02 | disposition home or self-care (01) ==
LOC: HO.LAB 11:01
PROVIDERS: PCP Physician Assistant Medical; Visit Provider Internal Medicine Rheumatology
DX: R76.0 Raised antibody titer (principal); R76.8 Other specified abnormal immunological findings in serum; N96 Recurrent pregnancy loss; D69.6 Thrombocytopenia, unspecified; R53.82 Chronic fatigue, unspecified; D72.819 Decreased white blood cell count, unspecified; M62.89 Other specified disorders of muscle
CPT/HCPCS: 36415; 82085; 82310; 82550; 83735; 84132; 85597; 85598; 85613; 85652; 85730; 86146; 86147; 86225; 86235

== ENCOUNTER 2025-02-27 11:01 | Outpatient (AMB) | payer OTHER, SELFPAY ==
--- NOTE | 2025-02-27 11:03 | MHC.OFFVIS ---
Vital Signs 02/27/25 11:06 Height 5 ft 8 in Weight 211 lb 6 oz BMI 32.1 BP 100/64 Blood Pressure Location Lt brachial Position Sitting Pulse 81 Pulse Source Pulse Oximeter Pulse Oximetry (%) 98 Oxygen Delivery Method Room Air Intake Visit Reasons: New Pt / abnormal immunological Intake Note: New patient presents today for abnormal immunological Allergies No Known Allergies Allergy (Verified 02/27/25 11:08) HPI HPI New Pt / abnormal immunological: Details: MAURY 1:160, chronic leucopenia and thrombocytopenia on labs 2024 in [facility]. Fevers with sickness. Denies fevers, dyspnea, pleurisy, raynaud's syndrome, rash, DVT or PE, joint pain or swelling. +miscarriage x4 chemical . 1 miscarriage at 3 months. She had miscarriage of one fetus in first trimester, initially thought to be having twins. She had 3 births. Evaluated by Hematology at the time Dr. De and found to have a genetic variant. +photosensitivity +chronic dry eyes. Noticed by her eye doctor. She is on refresh but is not compliant. Denies dry mouth that is noticeable. +cold sores recently with URIs x2 Chronic muscle twitches in legs for years. Chronic fatigue for years. He is experiencing muscle fatigue especially at the end of the day. She has been experiencing this for a very long time. 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 She she is experiencing weakness in her hands when trying to twist jars an open lids. She has not started a medication that has contributed to worsening muscle pain. She denies being on a statin. 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 PENDING SALE TO [facility] Medical History Chronic fatigue Positive MAURY (antinuclear antibody) Localized swelling, mass and lump, right lower limb Difficulty concentrating Muscle fasciculation Microalbuminuria Abnormal CBC Decreased GFR Anxiety and depression Concussion Mild memory disturbance Hyperlipidemia Chronic headaches Chronic neck pain Pre-diabetes Obesity Low vitamin D level Surgical History H/O dilation and curettage Family History Mother Anxiety Father Diabetes HTN (hypertension) Heart disease Thyroid disease Brother Diabetes Other FH: mental illness Substance abuse Social History Household Members: Spouse and Children Housing: House Alcohol intake: current Patient Tobacco Use Status: Former Tobacco user Tobacco use type: Cigarette Cigarette Packs Per Day: 0.5 Years Smoked: 15 e-Cigarette/Vaping Use: Never Used Second Hand Smoke Exposure: No 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 Had a concussion a couple years ago.) Hearing needs: No Vision needs: Yes (glasses) Physical Exam Vital Signs: Last Vital Signs Pulse 81 02/27/25 11:06 BP 100/64 02/27/25 11:06 Pulse Ox 98 02/27/25 11:06 Oxygen Delivery Method Room Air 02/27/25 11:06 BMI result Body Mass Index 32.1 Const Other: General: Comfortable CVS: RRR Respiratory: clear to auscultation bilaterally. Good respiratory effort Skin: Telangiectasia anterior chest. She has erythema on her face around her cheeks, forehead and chin. She does not have distribution of typical malar rash associated with connective tissue disease. No discoloration of fingertips. No digital ulcers. No skin tightening. MSK: Power 5/5 upper extremities and lower extremities. No diffuse allodynia. Tender to palpate bilateral trochanteric bursa. No joint tenderness on palpation. No synovitis. Normal range of motion of upper extremities and lower extremities. 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 Squaring of right CMC. Assessment & Plan Assessment & Plan (1) Positive MAURY (antinuclear antibody): Comment: Low titer 1:160 with chronic leukopenia, thrombocytopenia, dry eyes and history of recurrent miscarriages. I am working up for connective tissue disease Sjogren syndrome, and antiphospholipid syndrome. I will complete workup for systemic lupus erythematosus with specific antibody testing. Code(s): R76.8 - Other specified abnormal immunological findings in serum Category: Medical Plan: Labs ordered Return to clinic in 1-2 months to review results Requesting hematology evaluation note (2) Muscle fatigue: Comment: Chronic history with preserved power. My suspicion for idiopathic inflammatory myositis is low as was discussed with patient. She does not have an infection that can attribute to her current symptoms or medication. I will rule out electrolyte disturbance with labs. Code(s): M62.89 - Other specified disorders of muscle Category: Medical Plan: Labs ordered Return to clinic in 1-2 months (3) Trochanteric bursitis of both hips: Code(s): M70.61 - Trochanteric bursitis, right hip; M70.62 - Trochanteric bursitis, left hip Category: Medical Plan: AAOS hip strengthening program printed for patient. At this time she has a busy schedule and we will not be able to participate in PT. (4) Leukopenia: Code(s): D72.819 - Decreased white blood cell count, unspecified Category: Medical Qualifiers: Leukopenia type: other Qualified Code(s): D72.818 - Other decreased white blood cell count Plan: See above (5) History of recurrent miscarriages: Code(s): N96 - Recurrent loss Category: Medical Plan: See above (6) Thrombocytopenia: Code(s): D69.6 - Thrombocytopenia, unspecified Category: Medical Plan: See above (7) Chronic fatigue: Code(s): R53.82 - Chronic fatigue, unspecified Category: Medical Plan: See above (8) Osteoarthritis of carpometacarpal (CMC) joint of right thumb: Comment: Clinical diagnosis. We discussed conservative management. 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 Antibodies Today D69.6 - Thrombocytopenia, unspecified, D72.819 - Decreased white blood cell count, unspecified, N96 - Recurrent loss, R53.82 - Chronic fatigue, unspecified, R76.0 - Raised antibody titer, R76.8 - Other specified abnormal immunological findings in serum Lupus Anticoagulant Panel Today D69.6 - Thrombocytopenia, unspecified, D72.819 - Decreased white blood cell count, unspecified, N96 - Recurrent loss, R53.82 - Chronic fatigue, unspecified, R76.8 - Other specified abnormal immunological findings in serum Aldolase Today M62.89 - Other specified disorders of muscle OT Evaluation and Treatment Today M18.11 - Unilateral primary osteoarthritis of first carpometacarpal joint, right hand Erythrocyte Sedimentation Rate Today D69.6 - Thrombocytopenia, unspecified, D72.819 - Decreased white blood cell count, unspecified, N96 - Recurrent loss, R53.82 - Chronic fatigue, unspecified, R76.0 - Raised antibody titer, R76.8 - Other specified abnormal immunological findings in serum Anti DNA DS Antibody Today D69.6 - Thrombocytopenia, unspecified, D72.819 - Decreased white blood cell count, unspecified, N96 - Recurrent loss, R53.82 - Chronic fatigue, unspecified, R76.0 - Raised antibody titer, R76.8 - Other specified abnormal immunological findings in serum Sjogren's Antibodies Today D69.6 - Thrombocytopenia, unspecified, D72.819 - Decreased white blood cell count, unspecified, N96 - Recurrent loss, R53.82 - Chronic fatigue, unspecified, R76.0 - Raised antibody titer, R76.8 - Other specified abnormal immunological findings in serum Beta-2 Glycoprotein Antibody Today D69.6 - Thrombocytopenia, unspecified, D72.819 - Decreased white blood cell count, unspecified, N96 - Recurrent loss, R53.82 - Chronic fatigue, unspecified, R76.8 - Other specified abnormal immunological findings in serum Cardiolipin Antibodies Today D69.6 - Thrombocytopenia, unspecified, D72.819 - Decreased white blood cell count, unspecified, N96 - Recurrent loss, R53.82 - Chronic fatigue, unspecified, R76.8 - Other specified abnormal immunological findings in serum Creatine Kinase Total Today M62.89 - Other specified disorders of muscle Magnesium Today M62.89 - Other specified disorders of muscle Potassium Today M62.89 - Other specified disorders of muscle Calcium Today M62.89 - Other specified disorders of muscle Coding Level of Care Code New Pt Level 4 (41032) Complex EM visit Add On G2211 Diagnoses Positive MAURY (antinuclear antibody) R76.8 Muscle fatigue M62.89 Trochanteric bursitis of both hips M70.61; M70.62 Other decreased white blood cell (WBC) count D72.818 Leukopenia type: other History of recurrent miscarriages N96 Thrombocytopenia D69.6 Chronic fatigue R53.82 Osteoarthritis of carpometacarpal (CMC) joint of right thumb M18.11
[2025-02-27 11:06] VITALS: BP 100/64; PULSE 81; O2SAT 98; BMI 32.1
== END 2025-02-27 12:29 | disposition home or self-care (01) ==
LOC: HO.RHES 11:01
PROVIDERS: PCP Physician Assistant Medical; Visit Provider Internal Medicine Rheumatology
DX: R76.8 Other specified abnormal immunological findings in serum (principal); M62.89 Other specified disorders of muscle; M70.61 Trochanteric bursitis, right hip; M70.62 Trochanteric bursitis, left hip; D72.818 Other decreased white blood cell count; N96 Recurrent pregnancy loss; D69.6 Thrombocytopenia, unspecified; R53.82 Chronic fatigue, unspecified; M18.11 Unilateral primary osteoarthritis of first carpometacarpal joint, right hand
CPT/HCPCS: 99204

== ENCOUNTER 2025-03-15 15:55 | Outpatient (AMB) | payer OTHER, SELFPAY ==
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
[2025-03-15 16:03] VITALS: BP 102/80; PULSE 80; O2SAT 97; BMI 31.6
== END 2025-03-15 16:20 | disposition home or self-care (01) ==
LOC: HO.HKA 15:56
PROVIDERS: PCP Physician Assistant Medical; Visit Provider Internal Medicine Hypertension Specialist
DX: R80.9 Proteinuria, unspecified (principal); R94.4 Abnormal results of kidney function studies; R73.03 Prediabetes; E66.9 Obesity, unspecified; R76.8 Other specified abnormal immunological findings in serum
CPT/HCPCS: 99214

== ENCOUNTER 2025-04-05 09:56 | Outpatient (AMB) | payer OTHER, SELFPAY ==
--- OUTSIDE RECORDS SUMMARY | 2020-10-14 20:00 | XMS_ITS | Continuity of Care Document ---
Author Name [facility] Organization [facility] Care Team Providers Care Airline Stewardess Name Role Phone [facility] Unavailable Unavailable Immunizations Combined list of available immunizations from the Department of Defense and Veterans Affairs facilities. Immunization Series Date Given Administered By Site Reaction Lot Number CVX Code Drug Porcelain Turner Status Comments Source COVID-19 (MODERNA), MRNA, LNP-S, PF, 100 MCG/0.5 ML DOSE 2 2020 207 complet ed [facility] JERONIMO-19 (MODERNA), MRNA, LNP-S, PF, 100 MCG/0.5 ML DOSE 1 2020 207 complet ed [facility]
--- NOTE | 2025-04-05 10:01 | MHC.PC.OV ---
Vital Signs 04/05/25 10:04 Height 5 ft 8 in Weight 206 lb 2 oz BMI 31.3 BP 106/62 Blood Pressure Location Rt brachial Position Sitting Pulse 79 Pulse Source Pulse Oximeter Temp 98.2 F Temp Source Temporal Artery Scan Pulse Oximetry (%) 96 Oxygen Delivery Method Room Air Intake Visit Reasons: 3mos Intake Note: Valencia presents in the office today for a 3 month follow up. Allergies No Known Allergies Allergy (Verified 04/05/25 10:03) Tobacco use date assessed: 04/05/25 Dental Screening Dental Screen Date: 04/05/25 Did you have a dental visit in the last 12 months?: Yes Did you have a dental problem in the last 6 months where you did not have access to dental care?: No Was dental information given to patient?: Patient has dentist HPI HPI Comments History of Present Illness Details This is a 49-year-old female with a past medical history of prediabetes, obesity, low vitamin-D, depression with anxiety, RLS, concussion, chronic neck pain, chronic headaches, sleep apnea and mild memory impairment presenting for follow up. Thrombocytopenia/leukopenia-followed by Dr. Robert. Has f/u in April. Microalbuminuria-followed by nephrology. Possibly due to BMI. She saw rheumatology and has a follow up scheduled in April. Reports she has been feeling better lately. Endorses less fasiculations in calf muscles and improved fatigue. Prediabetic-insurance doesn't cover glp1. Lost 6 pounds this year with decreasing portion sizes and carbs. Right leg lump ultrasound showed lipoma vs artifact. Lump resolved and she thinks it was a hematoma from mild trauma. Endorses left leg lump x 1 year or more which is a little painful and seems to be larger than it was when she noticed it. Low vitamin d-not compliant with the supplements. She has chronic fatigue and memory issues and chronic headaches. She was evaluated by Dr. Arechiga after a concussion 4 years ago. A gate fell on her head. She has mild memory impairment since then. Neuropsych evaluation also suggested possible ADHD per patient. Negative MRI brain 2024. She has depression and anxiety treated with the sertraline and bupropion. 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 Son is having surgery for leg length discrepancy. She takes gabapentin 100 mg q.i.d. for restless leg and head and neck pain. Endorses occasional brief palpitations. Lasts a few seconds. She thinks it might be related to drinking an energy drink twice daily. No CP, SOB, dizziness, syncope. ROS: Constitutional: No unexplained weight loss, fever, chills. +fatigue Eyes: No vision changes, blurry vision, double vision, eye pain, eye redness, eye discharge. Neurologic: No dizziness, syncope, tremors, numbness or weakness. Musculoskeletal: See HPI Hematologic/Lymphatics: No spontaneous bleeding or bruising. No painful lymph nodes. Skin: No rash Endocrine: No cold. No polyuria or polydipsia. Psychiatric: see HPI Physical exam: Constitutional: Alert, in no distress. Head: Normocephalic. Neck: Supple, Full range of motion. No lymphadenopathy. No palpable thyroid masses. Respiratory: Clear to auscultation. Cardiovascular: S1 S2 regular. No murmurs. Extremities: Warm and well perfused, no clubbing, cyanosis or edema. Quarter sizes mildly tender rubbery lump on the anterior proximal left thigh. Psychiatric: Normal mood and affect [facility] Medical History (Updated 04/05/25 @ 22:17 by ELISSA Richmond) Mass of left thigh Muscle mass of leg Palpitations Chronic fatigue Positive MAURY (antinuclear antibody) Localized swelling, mass and lump, right lower limb Difficulty concentrating Muscle fasciculation Microalbuminuria Abnormal CBC Decreased GFR Anxiety and depression Concussion Mild memory disturbance Hyperlipidemia Chronic headaches Chronic neck pain Pre-diabetes Obesity Low vitamin D level Surgical History H/O dilation and curettage Family History Mother Anxiety Father Diabetes HTN (hypertension) Heart disease Thyroid disease Brother Diabetes Other FH: mental illness Substance abuse Social History (Updated 04/05/25 @ 10:04 by Kasia Estes MA) Household Members: Spouse and Children Housing: House Alcohol intake: current Patient Tobacco Use Status: Former Tobacco user Tobacco use type: Cigarette Cigarette Packs Per Day: 0.5 Years Smoked: 15 e-Cigarette/Vaping Use: Never Used Second Hand Smoke Exposure: No 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 Had a concussion a couple years ago.) Hearing needs: No Vision needs: Yes (glasses) Questionnaire Thrive Questionnaire Date Thrive assessed: 11/07/24 I am a: Patient What is your living situation today?: I have a steady place to live Within the past 12 months, did the food you bought not last and you didn't have the money to get more?: Never true Within the past 12 months, did you worry whether your food would run out before you got money to buy more?: Never true Do you have trouble paying for medicines?: No Do you have trouble getting transportation to medical appointments?: No Do you have trouble paying your heating and electricity bill?: No Do you have trouble taking care of your child, family member or friend?: I choose not to answer this question Do you have trouble with day-to-day activities such as bathing, preparing meals, shopping, managing finances, etc.?: No Are you currently unemployed and looking for a job?: No Are you interested in more education?: Yes Please select the resources that you would like help with: Care for elder or disabled Currently or been in a relationship where the following occur: No concerns reported THRIVE Score: 0 CHING-7 AMB Questionnaire CHING-7 Date CHING - 7 assessed: 12/28/24 Source: Developed by Drs. Ad Hudson, Jailene Bell, Kevin López and colleagues, with an educational kennedy from [employer]. Physical exam (Primary Care) Vital Signs: Last Vital Signs Temp 98.2 F 04/05/25 10:04 Pulse 79 04/05/25 10:04 BP 106/62 04/05/25 10:04 Pulse Ox 96 04/05/25 10:04 Oxygen Delivery Method Room Air 04/05/25 10:04 BMI result Body Mass Index 31.3 Tobacco/Smoking Status: Tobacco use Status Tobacco use date assessed 04/05/25 04/05/25 10:07 Patient Tobacco Use Status Former Tobacco user 04/05/25 10:07 Tobacco use type Cigarette 04/05/25 10:07 e-Cigarette/Vaping Use Never Used 04/05/25 10:07 Thrive Assessment: Date of Thrive Assessment Date Thrive assessed 11/07/24 04/05/25 10:07 Currently or been in a relationship where the following occur: No concerns reported Office Procedures EKG Details: EKG shows normal sinus rhythm, low-voltage QRS, no acute ischemic changes or evidence of arrhythmia or heart block 85167-[id number], Complete Coding Level of Care Code Est Pt Level 5 (24545) Complex EM visit Add On G2211 Diagnoses Muscle fasciculation R25.3 Microalbuminuria R80.9 Anxiety and depression F41.9; F32.A Mild memory disturbance R41.3 Abnormal CBC R79.89 Low vitamin D level R79.89 Pre-diabetes R73.03 Mass of left thigh R22.42 CPT Codes EKG - CPT: 30799-[id number], Complete ([id number]) Time Spent (min) 50 Comment chart review, direct patient care, documenting Assessment & Plan Assessment & Plan (1) Muscle fasciculation: Code(s): R25.3 - Fasciculation Category: Medical (2) Microalbuminuria: Code(s): R80.9 - Proteinuria, unspecified Category: Medical (3) Anxiety and depression: Code(s): F41.9 - Anxiety disorder, unspecified; F32.A - Depression, unspecified Category: Medical (4) Mild memory disturbance: Code(s): R41.3 - Other amnesia Category: Medical (5) Abnormal CBC: Code(s): R79.89 - Other specified abnormal findings of blood chemistry Category: Medical (6) Low vitamin D level: Code(s): R79.89 - Other specified abnormal findings of blood chemistry Category: Medical (7) Pre-diabetes: Code(s): R73.03 - Prediabetes Category: Medical (8) Mass of left thigh: Code(s): R22.42 - Localized swelling, mass and lump, left lower limb Category: Medical Plan In summary this is a 49-year-old female with a past medical history of head trauma, concussion, hyperlipidemia, prediabetes, obesity and depression with anxiety presenting for follow up. She is followed by Nephrology for microalbuminuria and decreased GFR. She was instructed to remain off nephrotoxic medications including NSAIDs. She is followed by hematology for leukopenia and thrombocytopenia. This could possibly be related to psych meds. Follow up is scheduled. She will follow up with rheumatology. Positive MAURY. Anxiety and depression may be contributing to memory concerns as well as her past history of head trauma. She may also have undiagnosed ADHD. We have discussed the headache clinic, and we discussed headaches are likely multifactorial in her case. She is seeing Dr. Roque currently. Reviewed the importance of sleep, hydration and stress reduction when possible. I ordered an ultrasound of her left leg for evaluation of the lump. EKG with no evidence of arrhythmia today. Patient declines holter monitor unless they become more frequent or she has symptoms associated with this. Check labs. Decrease caffaine. Hydrate. We started to discuss decreasing Sertraline as she wants to do this eventually. Deferred for today. She will message me. Follow up in 6 months for a physical exam. Orders: Orders Magnesium Today R00.2 - Palpitations, R79.89 - Other specified abnormal findings of blood chemistry Complete Blood Count Auto Diff Today R00.2 - Palpitations, R79.89 - Other specified abnormal findings of blood chemistry US Extremity Nonvas Limited LT Today M62.89 - Other specified disorders of muscle Vitamin D 25-OH (D2 and D3) Today R79.89 - Other specified abnormal findings of blood chemistry AMB EKG-In Office Today R00.2 - Palpitations TSH reflex Free T4 Today R00.2 - Palpitations, R79.89 - Other specified abnormal findings of blood chemistry Basic Metabolic Panel Today R00.2 - Palpitations, R79.89 - Other specified abnormal findings of blood chemistry Medications: New bupropion HCl XL 150 mg PO DAILY 90 tabs 1RF Refilled sertraline 200 mg (2 x 100 mg) PO DAILY 180 tabs 1RF
[2025-04-05 10:04] VITALS: BP 106/62; PULSE 79; TEMP 36.8; O2SAT 96; BMI 31.3
--- OUTSIDE RECORDS SUMMARY | 2025-04-05 10:42 | XMS_ITS | Clinical Summary ---
Author Organization Located Within [facility] Address [address] [place] [address] Phone Care Team Providers Care Sawmilling Operator Name Role Phone Melina Hines NP Primary Care Provide r Allergies No known active allergies Medications sertraline HCl (SERTRALINE ORAL) Take by mouth. Active GABAPENTIN ORAL Take by mouth as needed. Active Active Problems Problem Noted Date Diagnosed Date Prediabetes 04/09/2021 Assessment & Plan (04/09/2021 3:55 PM EDT): History: She had gestational diabetes with all 3 pregnancies, all normal weight 5 lbs 12 Oz to 7 lbs - born 2010 (diet controlled), 2010 (glipizide briefly), 2011 (glipizide briefly). 03/2021 HBA1c 5.5%, fasting glucose 120 mg/dL, 2 hr OGTT 129 mg/dL Cr 1.1 Diabetes Symptoms: Not drinking much during the day, drinks in the evening No polys during the day. Nocturia 3-4x is chronic Diet/exercise: Try to stay away from carbs, my plate diet Breakfast: Metagenix glucose control shakes Lunch: grilled chicken salad or broccoli rice and protein or turkey sandwich or left overs Dinner: protein and vegetable Cake on birthdays, occasional chocalate Snacks: fruit or skinny pop No juice or regular soda ?Exercise: sedentary working at home, has elliptical at home Weight history: Maximum weight 210 lbs Current weight 205 lbs Assessment/plan: She currently has evidence pre-diabetes with an abnormal fasting blood glucose 120 mg/dL x1 but HBA1c is normal and glucose 2 hrs post OGTT is normal. She has several other risk factors for developing diabetes in the future: gestational diabetes, obesity BMI 31, and a FHx type 2 She understands that she is at risk of developing diabetes and that she needs a lifelong commitment to work on her lifestyle and weight loss to decrease her risk of developing diabetes. And if diabetes does develop, she needs to remain committed to keep the diabetes under control to decrease the risk of developing diabetes- related complications such as nephropathy. I recommend monitoring her fasting glucose and HBA1c every 6-12 months. If biochemical parameters are worsening, a lower threshold for trying medications such as metformin to improve insulin sensitivity and/or GLP-1 agonist therapy to help weight loss should be considered. Immunizations Immunization Administration Dates Next Due Td (adult),2 Lf Tetanus Toxoid, PF, Adsorbed 09/1998 Tdap 06/28/2018,07/18/2007 Family History Medical History Relation Comments Diabetes Brother Type 2 Coronary artery disease Father S/p CABG x4 Diabetes Father Type 2 Kidney failure Father Thyroid disease Mother Susan's Relation Status Comments Brother Father Mother Social History Tobacco Use Types Packs/Day Years Used Date Smoking Tobacco: Former Cigarettes Q uit: 2000 Alcohol Use Standard Drinks/Week Comments Yes 0 (1 standard drink = 0.6 oz pur e alcohol) Very rare Education Answer Date Recorded Are you interested in more education? Not on brendan e 01/09/2023 Are you concerned about learning? Not on file 01/09/2023 No 01/09/2023 No 01/09/2023 Digital Access Answer Date Recorded No 02/09/2023 No 02/09/2023 Reliable internet access at home? Not on file 02/09/2023 Device with a working camera? Not on file Comments Unknown Sex and Gender Information Value Date Recorded Sex Assigned at Female 04/09/2021 1:53 PM EDT Legal Sex Female 3:51 PM EDT Gender Identity Female 04/09/2021 1:53 PM EDT Sexual Orientation Not on file Last Filed Vital Signs Vital Sign Reading Time Taken Comments Blood Pressure - - Pulse - - Temperature - - Respiratory Rate - - Oxygen Saturation - - Inhaled Oxygen Concentration - - Weight 93 kg (205 lb) 04/09/2021 2:56 PM EDT pat ient report Height 172.7 cm (5' 8 ) 04/09/2021 2:56 PM EDT r eport Body Mass Index 31.17 04/09/2021 2:56 PM EDT Plan of Treatment Health Maintenance Due Date Last Done Comments LIPID PANEL 1974 DEPRESSION SCREENING 1986 SMOKING Hx and SMOKELESS TOBACCO SCREENING 1987 HEPATITIS C SCREENING 1992 HIV ONE-TIME SCREENING (18-6 5 YEARS) 1992 PAP SMEAR 1995 MAMMOGRAM 2014 COLOGUARD 2019 COLONOSCOPY 2019 COLORECTAL CANCER SCREENING 2019 FIT TEST 2019 FOBT 2019 SIGMOIDOSCOPY 2019 VIRTUAL COLONOSCOPY 2019 COVID-19 VACCINE (3 - 2023-2 5 season) 2024 10/15/2020, 09/17/2020 PNEUMOCOCCAL VACCINES (50+ years) (1 of 1 - PCV) 2024 ZOSTER VACCINES (1 of 2) 2024 Adult Td,Tdap Booster 06/28/2028 06/28/2018 , 07/18/2007, 11/11/1998 HEPATITIS A VACCINES Aged Out No long er eligible based on patient's age to complete this topic HIB VACCINES Aged Out No longer eligi ble based on patient's age to complete this topic MENINGOCOCCAL VACCINES (ACWY) Aged Out No longer eligible based on patient's age to complete this topic MENINGOCOCCAL VACCINES (B) Aged Out N o longer eligible based on patient's age to complete this topic Medical Devices Not on file Insurance [facility] [address] [place] [address] [place] [address] [place] [address] [place] [address] [place] [place] [address] [place] [address] [facility] Care Teams Sawmilling Operator Relationship Specialty Start Date End Date Melina Hines NP [address] [place] [address] PCP - General Family Medicine 03/28/21 Additional Source Comments The information contained in this document represents components of the legal health record. It is not the complete legal health record.Located Within [facility]
== END 2025-04-05 10:54 | disposition home or self-care (01) ==
LOC: HO.HMCFM 09:57
PROVIDERS: PCP Physician Assistant Medical; Visit Provider Physician Assistant Medical
DX: R25.3 Fasciculation (principal); R80.9 Proteinuria, unspecified; F41.9 Anxiety disorder, unspecified; F32.A Depression, unspecified; R41.3 Other amnesia; R79.89 Other specified abnormal findings of blood chemistry; R73.03 Prediabetes; R22.42 Localized swelling, mass and lump, left lower limb

== ENCOUNTER → 2025-04-05 09:56 | Outpatient (BNVA) | payer OTHER, SELFPAY | PROVIDERS: PCP Physician Assistant Medical; Visit Provider Physician Assistant Medical | DX: R25.3 Fasciculation (principal); R80.9 Proteinuria, unspecified; F41.9 Anxiety disorder, unspecified; F32.A Depression, unspecified; R41.3 Other amnesia; R79.89 Other specified abnormal findings of blood chemistry; R73.03 Prediabetes; R22.42 Localized swelling, mass and lump, left lower limb; R00.2 Palpitations | CPT/HCPCS: 93005 ==

== ENCOUNTER 2025-05-03 10:18 | Outpatient (AMB) | payer OTHER, SELFPAY ==
--- NOTE | 2025-05-03 10:24 | MHC.OFFVIS ---
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 She sometimes has back pain. [facility] Medical History Mass of left thigh Muscle mass of leg Palpitations Chronic fatigue Positive MAURY (antinuclear antibody) Localized swelling, mass and lump, right lower limb Difficulty concentrating Muscle fasciculation Microalbuminuria Abnormal CBC Decreased GFR Anxiety and depression Concussion Mild memory disturbance Hyperlipidemia Chronic headaches Chronic neck pain Pre-diabetes Obesity Low vitamin D level Surgical History H/O dilation and curettage Family History Mother Anxiety Father Diabetes HTN (hypertension) Heart disease Thyroid disease Brother Diabetes Other FH: mental illness Substance abuse Social History Household Members: Spouse and Children Housing: House Alcohol intake: current Patient Tobacco Use Status: Former Tobacco user Tobacco use type: Cigarette Cigarette Packs Per Day: 0.5 Years Smoked: 15 e-Cigarette/Vaping Use: Never Used Second Hand Smoke Exposure: No 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 Had a concussion a couple years ago.) Hearing needs: No Vision needs: Yes (glasses) Physical Exam Vital Signs: Last Vital Signs Pulse 87 05/03/25 10:25 BP 120/70 05/03/25 10:25 Pulse Ox 98 05/03/25 10:25 Oxygen Delivery Method Room Air 05/03/25 10:25 BMI result Body Mass Index 31.7 Const Other: General: Comfortable CVS: RRR Respiratory: clear to auscultation bilaterally. Good respiratory effort Skin: Telangiectasia anterior chest. No discoloration of fingertips. No digital ulcers. No skin tightening. MSK: Power 5/5 upper extremities and lower extremities. No diffuse allodynia. No joint tenderness on palpation. No synovitis. Normal range of motion of upper extremities and lower extremities. Squaring of right CMC. Assessment & Plan Assessment & Plan (1) Positive AMURY (antinuclear antibody): Comment: Low titer 1:160 with chronic leukopenia, thrombocytopenia, dry eyes and history of recurrent miscarriages. She has a history of mild proteinuria with spot UA from January 2025 being unremarkable. Her laboratory workup revealed negative disease specific antibodies and markers for systemic lupus erythematosus, Sjogren syndrome and antiphospholipid syndrome. She has primarily hematological involvement with cytopenias. At this time she does not meet criteria for diagnosis of a connective tissue disease. Code(s): R76.8 - Other specified abnormal immunological findings in serum Category: Medical Plan: Follow up with Hematology and PCP. Per investor relations director's note reviewed in expanse, cytopenias may be drug-induced from bupropion and sertraline. I encouraged her to discuss tapering off 1 of these medications at a time, discussing replacement with another agent to maintain control of her psychiatric disorder with PCP and monitoring blood counts. Defer further workup to investor relations director if warranted with bone marrow bx if there are no changes in cytopenias after tapering off of bupropion and sertraline. If proteinuria persists, recommend renal consult for further evaluation No further rheumatological workup is indicated at this time (2) Muscle fatigue: Comment: Chronic history with preserved power. She has normal muscle enzymes and electrolytes. My clinical suspicion for idiopathic inflammatory myositis is very low. Code(s): M62.89 - Other specified disorders of muscle Category: Medical Plan: No further rheumatological workup is indicated at this time Referred back to PCP - if muscle fatigue persists, I recommend further studies with EMG (3) Trochanteric bursitis of both hips: Code(s): M70.61 - Trochanteric bursitis, right hip; M70.62 - Trochanteric bursitis, left hip Category: Medical Plan: [facility] hip strengthening program printed for patient last visit. She has been noncompliant with home exercise program. At this time she has a busy schedule and does not have time for physical therapy. We discussed the importance of having regular exercise. (4) Leukopenia: Code(s): D72.819 - Decreased white blood cell count, unspecified Category: Medical Qualifiers: Leukopenia type: other Qualified Code(s): D72.818 - Other decreased white blood cell count Plan: See above (5) History of recurrent miscarriages: Code(s): N96 - Recurrent loss Category: Medical Plan: See above (6) Thrombocytopenia: Code(s): D69.6 - Thrombocytopenia, unspecified Category: Medical Plan: See above (7) Chronic fatigue: Code(s): R53.82 - Chronic fatigue, unspecified Category: Medical Plan: See above (8) Osteoarthritis of carpometacarpal (CMC) joint of right thumb: Comment: Clinical diagnosis. We discussed conservative management. Code(s): M18.11 - Unilateral primary osteoarthritis of first carpometacarpal joint, right hand Category: Medical Plan: OT ordered for hand strengthening last visit. She has not been able to start occupational therapy due to her busy schedule. Coding Level of Care Code Est Pt Level 4 (96149) Complex EM visit Add On G2211 Diagnoses Positive MAURY (antinuclear antibody) R76.8 Muscle fatigue M62.89 Trochanteric bursitis of both hips M70.61; M70.62 Other decreased white blood cell (WBC) count D72.818 Leukopenia type: other History of recurrent miscarriages N96 Thrombocytopenia D69.6 Chronic fatigue R53.82 Osteoarthritis of carpometacarpal (CMC) joint of right thumb M18.11
[2025-05-03 10:25] VITALS: BP 120/70; PULSE 87; O2SAT 98; BMI 31.7
--- OUTSIDE RECORDS SUMMARY | 2025-05-03 11:48 | XMS_ITS | Clinical Summary ---
Author Organization [facility] Address [address] [place] [address] Phone Care Team Providers Care Pound Attendant Name Role Phone Melina Hines NP Primary [...] topic Medical Devices Not on file Insurance [facility] [address] [address] [place] [address] [place] [address] [place] [address] [place] [address] [address] [place] [place] [address] [place] [address] [facility] Care Teams Pound Attendant Relationship Specialty Start Date End Date Melina Hines NP [address] [place] [address] PCP - General Family Medicine 03/28/21 Additional Source Comments The information contained in this document represents components of the legal health record. It is not the complete legal health record.[facility]
--- OUTSIDE RECORDS SUMMARY | 2025-05-03 11:48 | XMS_ITS | Encounter Summary ---
Author Organization [facility] Address [address] [place] [address] Phone Care Team Providers Care Staffing Program Manager Name Role Phone Unavailable Primary Care Provider Unavailabl e Encounter Details Date Type Department Care Team (Late st Contact Info) Description 04/27/2025 Orders Only [facility] Medicine [place] [address] [place] [id number] Marysol Serrano Research subject (Primary Dx) Social History Tobacco Use Types Packs/Day Years Used Date Smoking Tobacco: Never Assessed Comments Unknown Sex and Gender Information Value Date Recorded Sex Assigned at Not on file Legal Sex Female 2:11 AM EDT Gender Identity Not on file Sexual Orientation Not on file documented as of this encounter Plan of Treatment Scheduled Orders Name Type Priority Associated Diagnoses Orde r Schedule Research Collection (Blood) Lab Routine Research subject Expected: 04/30/2025 (Approximate), Expires: 04/30/2026 documented as of this encounter Visit Diagnoses Diagnosis Research subject- Primary documented in this encounter
== END 2025-05-03 11:04 | disposition home or self-care (01) ==
LOC: HO.RHES 10:19
PROVIDERS: PCP Physician Assistant Medical; Visit Provider Internal Medicine Rheumatology
DX: R76.8 Other specified abnormal immunological findings in serum (principal); M62.89 Other specified disorders of muscle; M70.61 Trochanteric bursitis, right hip; M70.62 Trochanteric bursitis, left hip; D72.818 Other decreased white blood cell count; N96 Recurrent pregnancy loss; D69.6 Thrombocytopenia, unspecified; R53.82 Chronic fatigue, unspecified; M18.11 Unilateral primary osteoarthritis of first carpometacarpal joint, right hand
CPT/HCPCS: 99214

== ENCOUNTER 2025-05-07 12:03 | Outpatient (REF) | payer OTHER, SELFPAY ==
--- OUTSIDE RECORDS SUMMARY | 2020-10-14 20:00 | XMS_ITS | Continuity of Care Document ---
Author Name [facility] Organization [facility] Care Team Providers Care Steward/Stewardess Second Name Role Phone [facility] Unavailable Unavailable Immunizations Combined list of available immunizations from the Department of Defense and Veterans Affairs facilities. Immunization Series Date Given Administered By Site Reaction Lot Number CVX Code Drug Engineering Specialist Technician Status Comments Source COVID-19 (MODERNA), MRNA, LNP-S, PF, 100 MCG/0.5 ML DOSE 2 2020 207 complet ed [facility] [address] JERONIMO-19 (MODERNA), MRNA, LNP-S, PF, 100 MCG/0.5 ML DOSE 1 2020 207 complet ed [facility]
--- NOTE | ~2025-05-07 | US_ITS ---
Examination: US Extremity Nonvas Limited Lt Technique: Grayscale and color Doppler imaging was performed through the left inguinal region. INDICATION: Mass involving the proximal anterior left leg. Comparison:. No relevant prior Findings: There is a circumscribed mass like area in the superficial subcutaneous soft tissues measuring 3.1 x 0.7 x 1.8 cm. There is isoechoic to slightly hyperechoic relative to adjacent subcutaneous soft tissues tissue. On color Doppler, there is a central area blood flow demonstrated consistent with a solid vascularized mass. There is an area in the deep subcutaneous soft tissues measuring 1.9 x 0.8 x 1.0 cm that is hyperechoic and heterogeneous with linear hypoechoic areas. It demonstrates blood flow on color Doppler. US/US Extremity Nonvas Limited LT IMPRESSION: There are 2 indeterminate solid appearing masslike lesions in the left inguinal region. Ultrasound is nonspecific for mass characterization. If characterization of the masslike lesions is indicated, follow-up with MRI without and with IV contrast. Electronically signed by: Jose Weller MD 05/07/2025 01:06 PM EDT
--- OUTSIDE RECORDS SUMMARY | 2025-05-07 13:26 | XMS_ITS | Encounter Summary ---
Author Organization [facility] Address [address] [place] [address] Phone Care Team Providers Care Route Delivery Supervisor Name Role Phone Unavailable Primary Care Provider Unavailabl e Encounter Details Date Type Department Care Team (Late st Contact Info) Description 04/27/2025 Orders Only [facility] Medicine [place] [address] [place] [phone] Marysol Serrano Research subject (Primary Dx) Social [...]
--- OUTSIDE RECORDS SUMMARY | 2025-05-07 13:26 | XMS_ITS | Clinical Summary ---
Author Organization [facility] Address [address] [place] [address] Phone Care Team Providers Care Precision Machine Operator Name Role Phone Melina Hines NP [...] topic Medical Devices Not on file [facility] [place] [place] [address] [place] [address] [place] [place] [address] [place] [address] [place] [place] [address] [place] [address] [facility] Care Teams Precision Machine Operator Relationship Specialty Start Date End Date Melina Hines NP [address] [place] [address] PCP - General Family Medicine 03/28/21 Additional Source Comments The information contained in this document represents components of the legal health record. It is not the complete legal health record.[facility]
== END 2025-05-07 12:04 | disposition home or self-care (01) ==
LOC: HO.US 12:03
PROVIDERS: PCP Physician Assistant Medical; Visit Provider Physician Assistant Medical
DX: M62.89 Other specified disorders of muscle (principal)
CPT/HCPCS: 76882

== ENCOUNTER → 2025-05-07 12:05 | Outpatient (BNV) | payer OTHER, SELFPAY | PROVIDERS: PCP Physician Assistant Medical; Visit Provider Radiology Diagnostic Radiology | DX: R22.42 Localized swelling, mass and lump, left lower limb (principal) | CPT/HCPCS: 76882 ==

== ENCOUNTER 2025-05-23 09:13 | Outpatient (AMB) | payer OTHER, SELFPAY ==
--- NOTE | 2025-05-23 09:16 | A.OFFPC_ITS ---
Vital Signs 3 05/23/25 09:20 Height 5 ft 8 in Weight 211 lb 6 oz BMI 32.1 BP 115/67 Blood Pressure Location Lt brachial Position Sitting Respiration 12 Pulse 60 Pulse Source Pulse Oximeter Temp 97.2 F Temp Source Oral Pulse Oximetry (%) 98 Oxygen Delivery Method Room Air Intake Visit Reasons: pain in her baby right toe, Intake Note: Patient c/o right foot pinky toe red, swollen and painful x 2 weeks. Band Cutter Required: No Allergies No Known Allergies Allergy (Verified 05/23/25 09:25) Medication List - Last Reconciled 05/23/25 by Nieves Khan, PRE SALES TECHNICAL ENGINEER- bupropion HCl XL 150 mg PO DAILY cholecalciferol (vitamin D3) 50 mcg PO DAILY estradiol 1 patch topical 2XW gabapentin 100 mg PO QID progesterone micronized 100 mg PO DAILY sertraline 200 mg (2 x 100 mg) PO DAILY valacyclovir (Valtrex) 2,000 mg (2 x 1 gram) PO BID 1 day Tobacco use date assessed: 05/23/25 Dental Screening Dental Screen Date: 05/23/25 Did you have a dental visit in the last 12 months?: Yes Did you have a dental problem in the last 6 months where you did not have access to dental care?: No Was dental information given to patient?: Patient has dentist HPI HPI Comments 2 History of Present Illness0 Details 49-year-old female with a past medical h istory of prediabetes, obesity, low vitamin-D, depression with anxiety, RLS, concussion, chronic neck pain, chronic headaches, sleep apnea and mild memory impairment presenting for follow up. History of Present Illness - The patient is a 49-year-old female pr esenting with pain in right fifth toe. - Pain started weeks ago as a blister - Progressed to swelling, redness, hinde rs walking - Symptoms aggravated by work, some amirah viation with rest, spacious footwear - Denies fever, chills; occasional ankle involvement described as swelling of the R ankle that is self limiting and now resolved. - Denies hx of gout, neuropathy or PVD. - No home treatments tried Review of Systems - Musculoskeletal: Reports pain, redness , and swelling in right fifth toe. Denies fever or chills. - General: Denies systemic symptoms such as fever or chills. Physical Exam General: Well developed, well nourished, in no acute distress. Appears stated age. Head: Normocephalic, atraumatic. Eyes: Pupils are equal, round and reactive to light and accommodation. Conjunctivae are clear. . Lungs: Speaking in full sentences Musculoskeletal: R foot: Joints are nontender, without swelling, redness, or effusions. Pulses: Peripheral pulses are equal and palpable bilaterally. Right foot: 5th toe inside aspect is a corn. There is some mild localized edema of the toe, there is no deformity, warmth to suggest infection, Nail is intact Discussion Notes During today's consultation, we discussed that the primary diagnosis is a corn on the right fifth toe, which is likely causing the pain and swelling. I recommended trying home treatments such topical salicylic acid patches while waiting for a podiatry appointment. We reviewed the use of non-medicated gel pads for protection and advised wearing shoes with a wider toe box to reduce friction. The patient should continue using Tylenol as an analgesic, avoiding NSAIDs due to her low platelet count. I also discussed the application of topical Voltaren for its NSAID effects without systemic impact. A podiatry referral was strongly advised, and the option for earlier podiatry appointments was discussed. Follow-up with a commercial pest control technician as soon as possible was recommended to evaluate and potentially remove the corn, improving overall comfort and function. Patient was given time to ask questions. All questions were answered to their satisfaction. Assessment and Plan 1. [place] on right fifth toe - Aspirin and salicylic acid patches adv ised - Use gel pads, wear wide toe box shoes - Tylenol recommended - Voltaren gel as an anti-inflammatory - Podiatry referral [facility] Podiatry appt 06/21/25 2. Low platelet count - Avoid NSAIDs, recommend Tylenol Patient Instructions - Apply aspirin and salicylic acid patch es on the corn. - Use gel pads for protection and wear w edward toe box shoes. - Take Tylenol for pain relief. - Apply Voltaren gel to reduce inflammat ion. - Follow up with podiatry to check and r emove the corn. Consent Patient was informed and verbally consented to the use of an ambient scribe for clinic note documentation during this visit. Total time spent caring for the patient today was [] minutes. This includes time spent before the visit reviewing the chart, time spent during the visit, and time spent after the visit on documentation, reviewing laboratory results, diagnostic imaging, medications, performing a medically necessary evaluation, counseling on diagnoses, care coordination, ordering appropriate tests, ordering appropriate medications, review of tests performed by other providers, reporting test results with the patient, communication with other healthcare providers. [facility] Medical History (Updated 05/11/25 @ 13:30 by ELISSA Richmond) Abnormal CBC Anxiety and depression Chronic fatigue Chronic headaches Chronic neck pain Concussion Decreased GFR Difficulty concentrating Hyperlipidemia Localized swelling, mass and lump, right lower limb Low vitamin D level Mass of left inguinal region Mass of left thigh Mass of soft tissue of thigh Microalbuminuria Mild memory disturbance Muscle fasciculation Muscle mass of leg Obesity Palpitations Positive MAURY (antinuclear antibody) Pre-diabetes Surgical History H/O dilation and curettage Family History Mother Anxiety Father Diabetes HTN (hypertension) Heart disease Thyroid disease Brother Diabetes Other FH: mental illness Substance abuse Social History Household Members: Spouse and Children Housing: House Alcohol intake: current Patient Tobacco Use Status: Former Tobacco user Tobacco use type: Cigarette Cigarette Packs Per Day: 0.5 Years Smoked: 15 Packs Per Year: 8 e-Cigarette/Vaping Use: Never Used Second Hand Smoke Exposure: No 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 Had a concussion a couple years ago.) Hearing needs: No Vision needs: Yes (glasses) Questionnaire PHQ-9 Over the last 2 weeks, how often have you been bothered by any of the following problems? 1. Little interest or pleasure in doing things: not at all 2. Feeling down, depressed, or hopeless: not at all 3. Trouble falling or staying asleep, or sleeping too much: not at all 4. Feeling tired or having little energy: not at all 5. Poor appetite or overeating: not at all 6. Feeling bad about yourself - or that you are a failure or have let yourself or your family down: not at all 7. Trouble concentrating on things, such as reading the newspaper or watching television: not at all 8. Moving or speaking so slowly that other people could have noticed. Or the opposite - being so fidgety or restless that you have been moving around a lot more than usual: not at all 9. Thoughts that you would be better off or of hurting yourself in some way: not at all Total score: 0 Depression Screening Interpretation: Negative Depression Screening Done: Yes 09054 - PHQ-9 Billing: Yes Source: Developed by Drs. Ad Hudson, Jailene Bell, Kevin López and colleagues, with an educational kennedy from [employer]. Thrive Questionnaire Date Thrive assessed: 05/23/25 I am a: Patient What is your living situation today?: I have a steady place to live Within the past 12 months, did the food you bought not last and you didn't have the money to get more?: Never true Within the past 12 months, did you worry whether your food would run out before you got money to buy more?: Never true Do you have trouble paying for medicines?: No Do you have trouble getting transportation to medical appointments?: No Do you have trouble paying your heating and electricity bill?: No Do you have trouble taking care of your child, family member or friend?: I choose not to answer this question Do you have trouble with day-to-day activities such as bathing, preparing meals, shopping, managing finances, etc.?: No Are you currently unemployed and looking for a job?: No Are you interested in more education?: Yes Please select the resources that you would like help with: Care for elder or disabled Currently or been in a relationship where the following occur: No concerns reported THRIVE Score: 0 CHING-7 AMB Questionnaire CHING-7 Date CHING - 7 assessed: 05/23/25 Feeling nervous, anxious, or on edge: 0 = Not at all Not being able to stop or control worryin = Not at all Worrying too much about different things: 0 = Not at all Trouble relaxin = Not at all Being so restless that it is hard to sit still: 0 = Not at all Becoming easily annoyed or irritable: 0 = Not at all Feeling afraid as if something awful might happen: 0 = Not at all Total CHING-7 score (0-4 normal; 5-9 mild; 10-14 moderate; 15-21 severe): 0 Source: Developed by Drs. Ad Hudson, Jailene Bell, Kevin López and colleagues, with an educational kennedy from [employer]. CHING-7 Assessment Billing CHING-7 Assessment Tool: CHING-7 Assessment 63135 Physical exam (Primary Care) Vital Signs: Last Vital Signs Temp 97.2 F 05/23/25 09:20 Pulse 60 05/23/25 09:20 Resp 12 05/23/25 09:20 BP 115/67 05/23/25 09:20 Pulse Ox 98 05/23/25 09:20 Oxygen Delivery Method Room Air 05/23/25 09:20 BMI result Body Mass Index 32.1 Tobacco/Smoking Status: Tobacco use Status Tobacco use date assessed 05/23/25 05/23/25 09:21 Patient Tobacco Use Status Former Tobacco user 05/23/25 09:21 Tobacco use type Cigarette 05/23/25 09:21 e-Cigarette/Vaping Use Never Used 05/23/25 09:21 PHQ-9: PHQ-9 Score PHQ-9: Total score 0 05/23/25 09:21 Depression Screening Interpretation: Negative Thrive Assessment: Date of Thrive Assessment Date Thrive assessed 05/23/25 05/23/25 09:21 Currently or been in a relationship where the following occur: No concerns reported Coding Level of Care Code Est Pt Level 3 (47161) Complex EM visit Add On G2211 Diagnoses [place] of toe L84 Additional Codes CHING-7 Assessment Billing - CHING-7 Assessment Tool: CHING-7 Assessment 10498 ([id number]) PHQ-9 - 20674 - PHQ-9 Billing: Yes ([id number]) Assessment & Plan Assessment & Plan (1) [place] of toe: Code(s): L84 - Corns and callosities Plan ,. Orders: Referrals 2 Podiatry Referral L84 - Corns and callosities
[2025-05-23 09:20] VITALS: BP 115/67; PULSE 60; RESP 12; TEMP 36.2; O2SAT 98; BMI 32.1
--- OUTSIDE RECORDS SUMMARY | 2025-05-23 11:00 | XMS_ITS | Clinical Summary ---
Author Organization [facility] Address [address] [place] [address] Phone Care Team Providers Care Alignment Mechanic Name Role Phone Unavailable Primary Care Provider Unavailabl e Encounters Date Type Department Care Team Description 05/08/2025 1:15 PM EDT Lab [facility] Phlebotomy [address] [address] [place] [phone] Research subject 05/08/2025 Orders Only [facility] [address] [place] [phone] Marysol Serrano Research subject (Primary Dx) 05/08/2025 Travel 04/30/2025 Travel 04/27/2025 Orders Only [facility] [address] [place] [address] Marysol Serrano Research subject (Primary Dx) from Last 3 Months Social History Tobacco Use Types Packs/Day Years Used Date Smoking Tobacco: Never Assessed Comments Unknown Sex and Gender Information Value Date Recorded Sex Assigned at Not on file Legal Sex Female 2:11 AM EDT Gender Identity Not on file Sexual Orientation Not on file Plan of Treatment Health Maintenance Due Date Last Done Comments HIV Screening 1974 MMR Vaccines (1 of 1 - Standard series) 1975 Varicella Vaccines (1 of 2 - 13+ 2-dose series) 1987 Hepatitis C Screening 1992 Hepatitis B Vaccines (1 of 3 - 19+ 3-dose series) 1993 Influenza Vaccine (#1) 2025 , 07/11/2021, 06/28/2018, Additional history exists DTaP/Tdap/Td Vaccines (5 - Td or Tdap) 06/28/2028 06/28/2018, 08/09/2012, 07/18/2007, Additional history exists HIB Vaccines Aged Out No longer eligi ble based on patient's age to complete this topic HPV Vaccines Aged Out No longer eligi ble based on patient's age to complete this topic Hepatitis A Vaccines Aged Out No long er eligible based on patient's age to complete this topic IPV Vaccines Aged Out No longer eligi ble based on patient's age to complete this topic Meningococcal B Vaccine Aged Out No l onger eligible based on patient's age to complete this topic Meningococcal Vaccine Aged Out No jerrod dudley eligible based on patient's age to complete this topic Rotavirus Vaccines Aged Out No longer eligible based on patient's age to complete this topic Insurance [employer]
--- OUTSIDE RECORDS SUMMARY | 2025-05-23 11:00 | XMS_ITS | Clinical Summary ---
Author Organization [facility] Address [address] [place] [address] Phone Care Team Providers Care Gang Ripsaw Operator Name Role Phone Melina Hines NP [...] FOBT 2019 SIGMOIDOSCOPY 2019 VIRTUAL COLONOSCOPY 2019 PNEUMOCOCCAL VACCINES (50+ years) (1 of 1 - PCV) 2024 ZOSTER VACCINES (1 of 2) 2024 INFLUENZA VACCINE (#1) 2025 COVID-19 VACCINE (3 - 2024-2 6 season) 2025 10/15/2020, 09/17/2020 Adult Td,Tdap Booster 06/28/2028 06/28/2018 , 07/18/2007, [...] topic Medical Devices Not on file Insurance [facility] [address] [place] [address] [place], [place] [address] [place] [address] [facility] [address] [place] [address] S COUNTS INCLUDE 234 BEDS AT [facility] Care Teams Gang Ripsaw Operator Relationship Specialty Start Date End Date Melina Hines NP [address] [place] [address] PCP - General Family Medicine 03/28/21 Additional Source Comments The information contained in this document represents components of the legal health record. It is not the complete legal health record.[facility]
== END 2025-05-23 09:38 | disposition home or self-care (01) ==
LOC: HO.HMCFM 09:14
PROVIDERS: PCP Physician Assistant Medical; Visit Provider Nurse Practitioner Family
DX: L84 Corns and callosities (principal)

== ENCOUNTER → 2025-05-23 09:13 | Outpatient (BNVA) | payer OTHER, SELFPAY | PROVIDERS: PCP Physician Assistant Medical; Visit Provider Nurse Practitioner Family | DX: L84 Corns and callosities (principal) | CPT/HCPCS: 96127 ==

== ENCOUNTER 2025-06-14 13:39 | Outpatient (REF) | payer OTHER, SELFPAY ==
--- OUTSIDE RECORDS SUMMARY | 2025-06-11 13:20 | XMS_ITS | Encounter Summary ---
Author Organization [facility] Address [address] [place] [address] Phone Care Team Providers Care Supervisor Slate Splitting Name Role Phone Imelda Muñoz Primary Care Provide r Reason for Referral * Physical Therapy (Routine) - New Request Specialty Diagnoses / Procedures Referred By Deborah harris Referred To Contact Diagnoses Sprain of anterior talofibular ligament of right ankle, initial encounter Pascale Neves PA-C [address] [place] [address] Orthopedics & Sports Medicine, [place] [address] Phone: tel: fax: [email or web address] Referral ID Status Reason Start Date Expiration Date V isits Requested Visits Authorized [id number] New Request 06/11/2025 06/11/2026 1 1 Reason for Visit * Reason Comments Follow-up Right ankle sprain 2 wk follow up. Encounter Details Date Type Department Care Team ([facility] Contact Info) Description 06/11/2025 1:20 PM EDT Office Visit [facility] Orthopedics & Sports Medicine [address] [place] [phone] Pascale Neves PA-C [address] [place] [address] Orthopedics & Sports Medicine, [place] [address] [email or web address] Sprain of anterior talofibular ligament of right ankle, subsequent encounter (Primary Dx) Social History Tobacco Use Types Packs/Day Years Used Date Smoking Tobacco: Former Cigarettes Q uit: 1999 Alcohol Use Standard Drinks/Week Comments Yes 0 [...] PM EDT Sexual Orientation Not on file documented as of this encounter Patient Instructions * Attachments The following attachments cannot be sent through Care Everywhere. * Calf Strain: Rehab Exercises (Greek) documented in this encounter Progress Notes * Pascale Neves PA-C - 06/11/2025 1:20 PM EDT [facility] Orthopedics & Sports Medicine Date of Visit: 06/11/2025 Reason for Appointment: Right Ankle sprain 05/28/25 [facility] LailaKristen Bean is a 50 y.o. female here for scheduled follow up visit after right ankle sprain. 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 She was seen at [employer] urgent care and placed in ankle stirrup splint, also seen in ortho walk inclinic. Improved ankle pain and discomfort. States discomfort lateral leg. Mentions intermittent sensation changes right foot, currently normal. Past History No past medical history on file. Medications Current Outpatient Medications: buPROPion (WELLBUTRIN XL) 150 MG ER 24 hr tablet, Take 150 mg by mouth daily., Disp: , Rfl: , Last Dispense: Unknown (patient-reported) estradioL (VIVELLE-DOT) 0.025 mg/24 hr, APPLY 1 PATCH TOPICALLY TO THE SKIN 2 TIMES A WEEK, Disp: ,Rfl: , Last Dispense: Unknown (patient-reported) GABAPENTIN ORAL, Take by mouth as needed., Disp: , Rfl: , Last Dispense: Unknown (patient-reported) progesterone (PROMETRIUM) 100 mg capsule, Take by mouth daily., Disp: , Rfl: , Last Dispense: Unknown (patient-reported) sertraline HCl (SERTRALINE ORAL), Take by mouth., Disp: , Rfl: , Last Dispense: Unknown (patient-reported) Allergies: Allergies Allergen Reactions Latex ROS Pertinent items are noted in HPI. Exam Wt Readings from Last 1 Encounters: 05/28/25 95.3 kg (210 lb) Temp Readings from Last 1 Encounters: 05/28/25 36.1 ??C (97 ??F) (Temporal) BP Readings from Last 1 Encounters: 05/28/25 102/71 Pulse Readings from Last 1 Encounters: 05/28/25 72 General: Alert and Oriented x 3, in no distress, cooperative. Appropriate affect. Skin: Skin color, texture, turgor normal. No rashes or lesions. Right Ankle: NVI, normal sensation. No effusion. Tenderness to palpation ATFL. Ankle Range of motion DF 5, PF25, INV25, EVR5. Strength fair. Able to single leg stand. Gait: Rigid, limited push off. Slight ER with gait. Tenderness at distal ITB. Able to bilateral heel raise but very limited. Assessment: Right ankle sprain Plan: Discussed soft tissue injury, ankle sprain. Patient educated on exercises. Given PT prescription. Given no work note, until 07/11/25. Follow PRN. All questions answered, patient understands andagrees with plan. Pascale Neves PA-C documented in this encounter Plan of Treatment Scheduled Referrals Name Type Priority Associated Diagnoses Orde r Schedule Ambulatory referral to External Physical Therapy Outpatient Referral Routine Sprain of anterior talofibular ligament of right ankle, subsequent encounter Ordered: 06/11/2025 documented as of this encounter Visit Diagnoses Diagnosis Sprain of anterior talofibular ligament of right ankle, subsequent encounter- Primary documented in this encounter Care Teams Supervisor Slate Splitting Relationship Specialty Start Date End Date Imelda Muñoz PA [address] [place] [address] [place] [address] PCP - General Physician Gill Net Stringer 06/06/25 documented as of this encounter Additional Source Comments The information contained in this document represents components of the legal health record. It is not the complete legal health record.[facility]
--- NOTE | ~2025-06-14 | MR_ITS ---
EXAMINATION: MR PELVIS WITHOUT AND WITH CONTRAST CLINICAL INFORMATION: R19.09. Other intra-abdominal and pelvic swelling, mass and lump. COMPARISON: None available. TECHNIQUE: Multiplanar, multisequence MRI pelvis without and following IV contrast administration 10 cc of gadolinium based (Gadavist) without reported immediate complications. FINDINGS: Uterus is in anteversion flexion position measures 8 x 5 x 4 cm. Junctional zone measures 6 mm. Heterogeneous enhancement of the myometrium with a 1 cm hypointense T2 heterogeneous signal in the posterior body of the myometrium. The cervix measures 2 cm and is closed. The ovaries measure less than 2 cm with scattered follicles and no enhancing mass. No free fluid in the cul-de-sac. The main vessels are patent. The bladder is fluid-filled. No gross lymphadenopathy in the iliac region. Prominent lymph nodes in the inguinal region, nonspecific. No inguinal hernia. Bone marrow signal is normal. Coxofemoral joints are intact with normal alignment. No enhancing mass in the muscular plane or the soft tissues. Patient's large body habitus. MR/MR pelvis wo/w con IMPRESSION: 1 cm uterine fibroid. Electronically signed by: Marcel Hill MD 06/14/2025 04:26 PM EDT
--- OUTSIDE RECORDS SUMMARY | 2025-06-14 15:09 | XMS_ITS | Encounter Summary ---
Author Organization [facility] Address [address] [place] [address] Phone Care Team Providers Care Reactor Operator Name Role Phone Imelda Muñoz Primary Care Provide r Imelda Muñoz Primary Care Provide r Reason for Referral * MRI/CAT Scan - Authorized Specialty Diagnoses / Procedures Referred By Contac t Referred To Contact Radiology Diagnoses Other intra-abdominal and pelvic swelling, mass and lump Procedures MRI Pelvis (GI/) System, Provider Not In, [facility] [address] [address] Referral ID Status Reason Start Date Expiration Date V isits Requested Visits Authorized [id number] Authorized 06/05/2025 06/05/2026 1 1 Encounter Details Date Type Department Care Team (Late st Contact Info) Description 06/05/2025 Transcribe Orders Virtual Department [address] [place] [address] System, Provider Not In, [facility] [address] [address] Other intra-abdominal and pelvic swelling, mass and lump (Primary Dx) Social History Tobacco Use Types [...] Type Priority Associated Diagnoses Orde r Schedule MRI Pelvis (GI/) Imaging Routine Other intra-abdominal and pelvic swelling, mass and lump Expected: 06/05/2025, Expires: 06/05/2026 documented as of this encounter Visit Diagnoses Diagnosis Other intra-abdominal and pelvic swelling, mass and lump- Primary documented in this encounter Care Teams Reactor Operator Relationship Specialty Start Date End Date Imelda Muñoz PA [address] [place] [address] PCP - General Physician Federal Java Developer 05/28/25 06/05/25 Imelda Muñoz PA [address] [place] [address] [place] [address] PCP - General Physician Federal Java Developer 06/06/25 documented as of this encounter Additional Source Comments The information contained in this document represents components of the legal health record. It is not the complete legal health record.[facility]
--- OUTSIDE RECORDS SUMMARY | 2025-06-14 15:09 | XMS_ITS | Clinical Summary ---
Author Organization [facility] Address [address] [place] [address] Phone Care Team Providers Care Sanforizer Name Role Phone Imelda Muñoz Primary Care Provide r Allergies Active Allergy Reactions Criticality Noted Date Comments Latex 05/28/2025 Medications sertraline HCl (SERTRALINE ORAL) Take by mouth. Activ e GABAPENTIN ORAL Take by mouth as needed. Active buPROPion (WELLBUTRIN XL) 150 MG ER 24 hr tablet Take 150 mg by mouth daily. Active estradioL (VIVELLE-DOT) 0.025 mg/24 hr APPLY 1 PATCH TOPICALLY TO THE SKIN 2 TIMES A WEEK Active progesterone (PROMETRIUM) 100 mg capsule Take by mouth daily. Active Hospital, Clinic, or Other Facility Administered Medication Ordered Dose Route Frequency Start Date End Date Status acetaminophen (TYLENOL) tablet 975 mgIndications:Closed avulsion fracture of right ankle, initial encounter 975 mg Oral Once 05/28/2025 05/28/2025 Ended Active Problems Problem Noted Date Diagnosed Date Class 1 obesity 05/28/2025 Depression 05/28/2025 CHING (generalized anxiety disorder) 05/28/2025 Hypercholesteremia 05/28/2025 Prediabetes 04/09/2021 Assessment & Plan (04/09/2021 3:55 [...] chronic Diet/exercise: Try to stay away from Instant [employer], my plate diet Breakfast: Metagenix glucose control [...] to help weight loss should be considered. Encounters Date Type Department Care Team Description 06/11/2025 1:20 PM EDT Office Visit [facility] Orthopedics & Sports Medicine [address] [place] [address] Pascale Neves PA-C Sprain of anterior talofibular ligament of right ankle, subsequent encounter (Primary Dx) 06/05/2025 Transcribe Orders [facility] Department [address] [place] [address] [id number] System, Provider Not In, PhD Other intra-abdominal and pelvic swelling, mass and lump (Primary Dx) 2025 Telephone [facility] Orthopedics & Sports Medicine [address] [place] [address] Ronal Ramirez PA-C 05/28/2025 2:00 PM EDT Office Visit [facility] at [address] [phone] Ronal Ramirez PA-C Sprain of anterior talofibular ligament of right ankle, initial encounter (Primary Dx); Closed nondisplaced fracture of cuboid of right foot, initial encounter 05/28/2025 11:15 AM EDT - 05/28/2025 11:59 PM EDT Hospital Encounter [facility], X-Ray - [address] [address] Demetrio Conway PA-C Discharge Disposition: Home or Self Care 05/28/2025 9:50 AM EDT Office Visit [facility] at [address] [address] Demetrio Conway PA-C Closed avulsion fracture of right ankle, initial encounter (Primary Dx); Closed fracture of right foot, initial encounter; Work related injury from Last 3 Months Immunizations Immunization Administration Dates Next Due Td [...] Sign Reading Time Taken Comments Blood Pressure 102/71 05/28/2025 10:14 AM EDT Pulse 72 05/28/2025 10:14 AM EDT Temperature 36.1 C (97 F) 05/28/2025 10:14 AM EDT Respiratory Rate 16 05/28/2025 10:14 AM EDT Oxygen Saturation 97% 05/28/2025 10:14 AM EDT Inhaled Oxygen Concentration - - Weight 95.3 kg (210 lb) 05/28/2025 10:14 AM EDT Height 172.7 cm (5' 8 ) 05/28/2025 10:14 AM EDT Body Mass Index 31.93 05/28/2025 10:14 AM EDT Plan of Treatment Health Maintenance Due Date Last Done Comments LIPID PANEL 1974 DEPRESSION SCREENING 1986 HEPATITIS C SCREENING 1992 HIV ONE-TIME SCREENING (18-65 YEARS) 1992 PAP SMEAR 1995 SCREENING FOR DIABETES 2009 MAMMOGRAM 2014 COLOGUARD 2019 COLONOSCOPY 2019 COLORECTAL CANCER SCREENING 2019 FIT TEST 2019 FOBT 2019 SIGMOIDOSCOPY 2019 VIRTUAL COLONOSCOPY 2019 PNEUMOCOCCAL VACCINES (50+ years) (1 of 1 - PCV) 2024 ZOSTER VACCINES (1 of 2) 2024 INFLUENZA VACCINE (#1) 2025 , 07/11/2021, 06/28/2018, Additional history exists SMOKING Hx and SMOKELESS TOBACCO SCREENING 06/11/2026 06/11/2025 Adult Td,Tdap Booster 06/28/2028 06/28/2018 , 07/18/2007, 11/11/1998 COVID-19 VACCINE Completed 07/30/2024, , 10/15/2020, Additional history exists HEPATITIS A VACCINES Aged Out No long [...] this topic Medical Devices Not on file Procedures Procedure Name Priority Date/Time Associated Diagnosis Comments XR ANKLE 3 OR MORE VIEWS (RIGHT) Urgent/patient waiting 05/28/2025 11:47 AM EDT Closed avulsion fracture of right ankle, initial encounter from Last 3 Months Results * XR ANKLE 3 OR MORE VIEWS (RIGHT) (05/28/2025 11:47 AM EDT) Anatomical Region Laterality Modality Ankle Right Computed Radiogr aphy 05/28/2025 12:4 6 PM EDT Impressions 05/28/2025 1:00 PM EDT 2 mm fragment projecting along the plantar surface of the proximal cuboid on lateral views, possible tiny cuboid avulsion. Well-corticated 8 x 3 mm fragment projecting inferior to the medial malleolus, likely sequelae of chronic injury. Normal alignment. Symmetric ankle mortise. Normal joint spaces. Trace ankle effusion. Plantar calcaneal spur and achilles enthesophyte. Narrative 05/28/2025 1:00 PM EDT XR ANKLE 3 OR MORE VIEWS (RIGHT) Referring clinician's provided indication for this examination in [facility]: Trauma; Inversion injury today walking on uneven ground, pain lateral right ankle COMPARISON: None. Procedure Note Karlie Hathaway MD - 05/28/2025 XR ANKLE 3 OR MORE VIEWS (RIGHT) Referring clinician's provided indication for this examination in [facility]:Trauma; Inversion injury today walking on uneven ground, pain lateralright ankle COMPARISON: None. IMPRESSION: 2 mm fragment projecting along the plantar surface of the proximal cuboidon lateral views, possible tiny cuboid avulsion. Well-corticated 8 x 3 mm fragment projecting inferior to the medialmalleolus, likely sequelae of chronic injury. Normal alignment. Symmetricankle mortise. Normal joint spaces. Trace ankle effusion. Plantarcalcaneal spur and achilles enthesophyte. Demetrio Conway PA-C IMG XR LOWER EXTREMITY F inal Result from Last 3 Months Insurance S [place] [address] [place] [address]S [facility] [address] [place] [address] [place] [address] [facility] [place] [address] Care Teams Sanforizer Relationship Specialty Start Date End Date Imelda Muñoz PA [address] [place] [address] [place] [address] PCP - General Physician Energy Efficiency Finance Manager 06/06/25 Additional Source Comments The information contained in this document represents components of the legal health record. It is not the complete legal health record.[facility]
--- OUTSIDE RECORDS SUMMARY | 2025-06-14 15:09 | XMS_ITS | Encounter Summary ---
Author Organization [facility] Address [address] [place] [address] Phone Care Team Providers Care Color Mixer Name Role Phone Imelda Muñoz Primary Care Provide r Imelda Muñoz Primary Care Provide r Encounter Details Date Type Department Care Team (Late st Contact Info) Description 2025 Telephone [facility] Orthopedics & Sports Medicine [address] [place], [place] [phone] Ronal Ramirez PA-C [address] [place] [address] Orthopedics & Sports Medicine, [facility]. [place], [place] [phone] [email or web address] Social History Tobacco Use Types Packs/Day Years [...] on file documented as of this encounter Progress Notes * Chula AkersShabnamAmor - 2025 11:20 AM EDT Appointment is scheduled for 05/28/25, sent letter to request authorization for approval to Insurance Company. Information is listed below. Date of Injury: 05/28/25 Body Part: Right ankle Name of Insurance Company: [facility] [place] Claim Number: [id number] Drafting Supervisor: Padmini Osorio Adjusters Adjusters documented in this encounter Plan of Treatment Not on file documented as of this encounter Visit Diagnoses Not on filedocumented in this encounter Care Teams Color Mixer Relationship Specialty Start Date End Date Imelda Muñoz PA [address] [place] [id number] PCP - General Physician Refinery Operator Coking 05/28/25 06/05/25 Imelda Muñoz PA [address] [place] [address] [place] [address] PCP - General Physician Refinery Operator Coking 06/06/25 documented as of this encounter Additional Source Comments The information contained in this document represents components of the legal health record. It is not the complete legal health record.[facility]
--- OUTSIDE RECORDS SUMMARY | 2025-06-14 15:09 | XMS_ITS | Clinical Summary ---
Author Organization [facility] Address [address] [place] [address] Phone Care Team Providers Care Canvas Worker Apprentice Name Role Phone Unavailable Primary Care Provider Unavailabl e Encounters Date Type Department Care Team Description 05/08/2025 1:15 PM EDT Lab [facility] [address] [place] [phone] Research subject 05/08/[address] [facility] [address] [place] [address] Marysol Serrano Research subject (Primary Dx) 05/08/2025 Travel 04/30/2025 Travel 04/27/[address] [facility] [address] [place] [address] Marysol Serrano Research subject (Primary Dx) from [...] Health Maintenance Due Date Last Done Comments Chlamydia and Gonorrhea Screening 1974 HIV Screening 1974 MMR Vaccines (1 of 1 - Standard series) 1975 Anemia Screening 1986 Varicella Vaccines (1 of 2 - 13+ [...] age to complete this topic HPV Vaccines (No Doses Required) Completed Hepatitis A Vaccines Aged Out No long [...] patient's age to complete this topic Insurance [employer]
== END 2025-06-14 13:40 | disposition home or self-care (01) ==
LOC: HO.MRI 13:39
PROVIDERS: PCP Physician Assistant Medical; Visit Provider Physician Assistant Medical
DX: R19.09 Other intra-abdominal and pelvic swelling, mass and lump (principal)
CPT/HCPCS: 72197; A9585

== ENCOUNTER → 2025-06-14 14:07 | Outpatient (BNV) | payer OTHER, SELFPAY | PROVIDERS: PCP Physician Assistant Medical; Visit Provider Radiology Diagnostic Radiology | DX: D25.9 Leiomyoma of uterus, unspecified (principal) | CPT/HCPCS: 72197 ==

== ENCOUNTER 2025-06-27 14:40 | Outpatient (REF) | payer OTHER, SELFPAY ==
[2025-06-27 15:01] LABS: MANUAL DIFF FLAG NO
[2025-06-27 15:49] LABS: Hematocrit 44.6 % (37.0-47.0); Hemoglobin 14.1 g/dl (12.0-16.0); Imm Gran Abs Auto 0.01 X10*3/uL (0.00-0.03); Imm Gran Pct Auto 0.2 % (0.0-0.4); Lymphocytes Absolute Auto 1.5 X10*3/uL (1.2-4.9); Mean Corpuscular HGB Conc 31.6 g/dl (31.0-35.0); Mean Corpuscular Hemoglobin 26.9 pg (27.0-33.0); Mean Corpuscular Volume 85.0 fL (80.0-98.0); NRBC Abs Auto 0.000 X10*3/uL (0.0-0.012); NRBC Pct Auto 0.0 /100WBC (0.0-0.2); Platelet Count 143 X10*3/uL (160-400); Red Blood Count 5.25 X10*6/uL (4.20-5.50); White Blood Count 4.8 X10*3/uL (4.8-10.8)
[2025-06-27 16:54] LABS: Anion Gap 12 (12-20); Blood Urea Nitrogen 17 mg/dL (9-16); Calcium 9.8 mg/dL (8.4-10.2); Carbon Dioxide 28 mmol/L (22-29); Chloride 107 mmol/L (96-108); Estimated Glomerular Filt Rate 47; Iron 76 mcg/dL (30-160); Magnesium 1.9 mg/dL (1.6-2.6); Percent Iron Saturation 24 % (15-50); Potassium 4.3 mmol/L (3.3-5.1); Sodium 143 mmol/L (135-145); Total Iron Binding Capacity 321 mcg/dL (228-428); Unsaturated Iron Binding 245 ug/dL
[2025-06-27 16:57] LABS: Ferritin 128 ng/mL (10-250)
[2025-06-27 17:13] LABS: Folate 11.3 ng/mL (> or = 4.0); Vitamin B12 475 pg/mL (200-900)
--- OUTSIDE RECORDS SUMMARY | 2025-06-27 18:25 | XMS_ITS | Encounter Summary ---
Author Organization [facility] Address [address] [place] [address] Phone Care Team Providers Care Make Up Operator Name Role Phone Imelda Muñoz Primary Care Provide r Imelda Muñoz Primary Care Provide r Reason for Referral * MRI/CAT Scan - Authorized Specialty Diagnoses / Procedures Referred By Contac t Referred To Contact Radiology Diagnoses Other intra-abdominal and pelvic swelling, mass and lump Procedures MRI Pelvis (GI/) System, Provider Not In, [facility] [address] [address] Referral ID Status Reason Start Date Expiration Date V isits Requested Visits Authorized [id number] Authorized 06/05/2025 06/05/2026 1 1 Encounter Details Date Type Department Care Team (Late st Contact Info) Description 06/05/2025 Transcribe Orders Virtual Department [address] [place] [address] System, Provider Not In, PhD [facility] [address] [address] Other intra-abdominal and pelvic swelling, mass and [...] as of this encounter Plan of Treatment Upcoming Encounters Date Type Department Care Team (Late st Contact Info) Description 07/11/2025 10:00 AM EDT Office Visit [facility] Orthopedics & Sports Medicine [address] [place] [address] Pascale Neves PA-C [address] [address] Orthopedics & Sports Medicine, [place] [address] [email or web address] Scheduled Orders Name Type Priority Associated Diagnoses Orde r Schedule MRI Pelvis (GI/) Imaging Routine Other intra-abdominal and pelvic swelling, mass and lump Expected: 06/05/2025, Expires: 06/05/2026 documented as of this encounter Visit Diagnoses Diagnosis Other intra-abdominal and pelvic swelling, mass and lump- Primary documented in this encounter Care Teams Make Up Operator Relationship Specialty Start Date End Date Imelda Muñoz PA [address] [place] [id number] PCP - General Physician Manpower Development Advisor 05/28/25 06/05/25 Imelda Muñoz PA [address] [place] [address] [place] [address] PCP - General Physician Manpower Development Advisor 06/06/25 documented as of this encounter Additional Source Comments The information contained in this document represents components of the legal health record. It is not the complete legal health record.[facility]
--- OUTSIDE RECORDS SUMMARY | 2025-06-27 18:25 | XMS_ITS | Encounter Summary ---
Author Organization [facility] Address [address] [place] [address] Phone Care Team Providers Care Machining Manager Name Role Phone Imelda Muñoz Primary Care Provide r Imelda Muñoz Primary Care Provide r Encounter Details Date Type Department Care Team (Late st Contact Info) Description 2025 Telephone [facility] Orthopedics & Sports Medicine [address] [place], [place] [phone] Ronal Ramirez PA-C [address] [place] [address] Orthopedics & Sports Medicine, [facility]. [place], [place] [phone] [email or web address] Social History Tobacco Use Types Packs/Day Years [...] as of this encounter Progress Notes * Hui Akers - 2025 11:20 AM EDT Appointment is scheduled for 05/28/25, sent letter to request authorization for approval to Insurance Company. Information is listed below. Date of Injury: 05/28/25 Body Part: Right ankle Name of Insurance Company: [facility] [place] Claim Number: [id number] Superintendent Generating Plant: Padmini Osorio Adjusters Adjusters documented in this encounter Plan of Treatment Upcoming Encounters Date Type Department Care Team (Late st Contact Info) Description 07/11/2025 10:00 AM EDT Office Visit [facility] Orthopedics & Sports Medicine [address] [place] [address] Pascale Neves PA-C [address] [place] [address] Orthopedics & Sports Medicine, [facility] [place] [address] [email or web address] documented as of this encounter Visit Diagnoses Not on filedocumented in this encounter Care Teams Machining Manager Relationship Specialty Start Date End Date Imelda Muñoz PA [address] [place] [id number] PCP - General Physician Forensic Specialist 05/28/25 06/05/25 Imelda uMñoz PA [address] [place] [address] [place] [address] PCP - General Physician Forensic Specialist 9/24/25 documented as of this encounter Additional Source Comments The information contained in this document represents components of the legal health record. It is not the complete legal health record.[facility]
--- OUTSIDE RECORDS SUMMARY | 2025-06-27 18:25 | XMS_ITS | Clinical Summary ---
Author Organization [facility] Address [address] [place] [address] Phone Care Team Providers Care Teacher Resource Name Role Phone Unavailable Primary Care Provider Unavailabl e Encounters Date Type Department Care Team Description 05/08/2025 1:15 PM EDT Lab [facility] [address] [address] [place] [address] Research subject 05/08/2025 Orders Only [facility] [address] [place] [address] Marysol Serrano Research subject (Primary Dx) 05/08/2025 Travel 04/30/2025 Travel 04/27/2025 Orders Only [facility] [address] [place] [address] Marysol Serrano Research subject (Primary Dx) from [...] patient's age to complete this topic Insurance [employer]
--- OUTSIDE RECORDS SUMMARY | 2025-06-27 18:25 | XMS_ITS | Clinical Summary ---
Author Organization [facility] Address [address] [place] [address] Phone Care Team Providers Care Director Quality Assurance Name Role Phone Imelda Muñoz Primary Care [...] mg capsule Take by mouth daily. Active Active Problems Problem Noted Date Diagnosed [...] Description 06/11/2025 1:20 PM EDT Office Visit [facility] Orthopedics & Sports Medicine [address] [place] [address] Pascale Neves PA-C Sprain of anterior talofibular ligament of right ankle, subsequent encounter (Primary Dx) 06/05/2025 Transcribe Orders Virtual Department [address] [place] [address] System, Provider Not In, PhD Other intra-abdominal and pelvic swelling, mass and lump (Primary Dx) 2025 Telephone [facility] Orthopedics & Sports Medicine [address] [place] [address] Ronal Ramirez PA-C 05/28/2025 2:00 PM EDT Office Visit [facility] at [address] [phone] Ronal Ramirez PA-C Sprain of anterior talofibular ligament of right ankle, initial encounter (Primary Dx); Closed nondisplaced fracture of cuboid of right foot, initial encounter 05/28/2025 11:15 AM EDT - 05/28/2025 11:59 PM EDT Hospital Encounter [facility], X-Ray - [address] [address] Demetrio Conway PA-C Discharge Disposition: Home or Self Care 05/28/2025 9:50 AM EDT Office Visit [facility] at [address] [address] Demetrio Conway PA-C Closed avulsion fracture of [...] 05/28/2025 10:14 AM EDT Plan of Treatment Upcoming Encounters Date Type Department Care Team (Late st Contact Info) Description 07/11/2025 10:00 AM EDT Office Visit [facility] Orthopedics & Sports Medicine [address] [place] [address] Pascale Neves PA-C [address] [place] [address] Orthopedics & Sports Medicine, [facility] [place] [address] Health Maintenance Due Date Last Done Comments [...] of 2) 2024 INFLUENZA VACCINE (#1) 2025 4, 07/11/2021, 06/28/2018, Additional history exists COVID-19 VACCINE ( season) 2025 07/30/2024, 08/01/2021, 10/15/2020, Additional history exists SMOKING Hx and SMOKELESS TOBACCO SCREENING 06/11/2026 06/11/2025 Adult Td,Tdap Booster 06/28/2028 06/28/2018 , 07/18/2007, 11/11/1998 RSV VACCINE (1 - 1-dose 75+ series) 2049 HEPATITIS A VACCINES Aged Out No long [...] clinician's provided indication for this examination in Epic: Trauma; Inversion injury today walking on uneven ground, pain lateral right ankle COMPARISON: None. Procedure Note Karlie Hathaway MD - 05/28/2025 XR ANKLE 3 OR MORE VIEWS (RIGHT) Referring clinician's provided indication for this examination in Epic:Trauma; Inversion injury today walking on uneven ground, [...] inal Result from Last 3 Months Insurance [facility] [place] [address] [place] [address] [place] [address] [place] [address] [place] [address] [place] [place] [address] [place], [place] [address]S [facility] [address] [place], [place] [address]S [facility] Care Teams Director Quality Assurance Relationship Specialty Start Date End Date Imelda Muñoz PA [address] [place] [address] [place] [address] PCP - General Physician Chainstitch Binder 06/06/25 Additional Source Comments The information contained in this document represents components of the legal health record. It is not the complete legal health record.[facility]
[2025-07-04 15:02] LABS: Vitamin D 25-OH, D2 <4 ng/mL; Vitamin D 25-OH, D3 24 ng/mL; Vitamin D 25-OH, Total 24 ng/mL (30-100)
== END 2025-06-27 14:41 | disposition home or self-care (01) ==
LOC: HO.LAB 14:40
PROVIDERS: PCP Physician Assistant Medical; Visit Provider Physician Assistant Medical
DX: R22.9 Localized swelling, mass and lump, unspecified (principal); R79.89 Other specified abnormal findings of blood chemistry; R00.2 Palpitations; D64.9 Anemia, unspecified
CPT/HCPCS: 36415; 80048; 82306; 82607; 82728; 82746; 83036; 83540; 83735; 84443; 85025

== ENCOUNTER 2025-06-27 15:05 | Outpatient (AMB) | payer OTHER, SELFPAY ==
--- NOTE | 2025-06-27 15:12 | MHC.OFFVIS ---
Vital Signs 06/27/25 15:19 Height 5 ft 8 in Weight 209 lb BMI 31.8 Intake Visit Reasons: mass on leg Intake Note: This patient presents for an assessment of mass on the leg. Pt c/o; left groin mass, she had an MRI and was advised of enlarged lymph node. DI: 05/07/2025: Extremity US Managing Consultant Required: No Accompanied by: Self / Same As Patient Allergies No Known Allergies Allergy (Verified 06/27/25 15:20) Medication List - Last Reconciled 06/27/25 by Efrain Roque MD bupropion HCl XL 150 mg PO DAILY cholecalciferol (vitamin D3) 50 mcg PO DAILY estradiol 1 patch topical 2XW gabapentin 100 mg PO QID progesterone micronized 100 mg PO DAILY sertraline 200 mg (2 x 100 mg) PO DAILY valacyclovir (Valtrex) 2,000 mg (2 x 1 gram) PO BID 1 day HPI HPI mass on leg: Details: 50-year-old female referred for a subcutaneous mass on the left thigh proximal area. She says she has had this for ?years?. She however says that this seems to be getting bigger. She describes some pain and discomfort and she wants this removed. She is worried that this may become a malignancy. She does have some problems chronically low platelets he is being followed by the watershed coordinator. She had an MRI which did not really reveal a mass in the area. She had a previous ultrasound which was indeterminate. [facility] Medical History (Updated 06/27/25 @ 15:37 by Efrain Roque MD) Subcutaneous mass Mass of left inguinal region Mass of soft tissue of thigh Mass of left thigh Muscle mass of leg Palpitations Chronic fatigue Positive MAURY (antinuclear antibody) Localized swelling, mass and lump, right lower limb Difficulty concentrating Muscle fasciculation Microalbuminuria Abnormal CBC Decreased GFR Anxiety and depression Concussion Mild memory disturbance Hyperlipidemia Chronic headaches Chronic neck pain Pre-diabetes Obesity Low vitamin D level Surgical History H/O dilation and curettage Family History Mother Anxiety Father Diabetes HTN (hypertension) Heart disease Thyroid disease Brother Diabetes Other FH: mental illness Substance abuse Social History Household Members: Spouse and Children Housing: House Alcohol intake: current Patient Tobacco Use Status: Former Tobacco user Tobacco use type: Cigarette Cigarette Packs Per Day: 0.5 Years Smoked: 15 e-Cigarette/Vaping Use: Never Used Second Hand Smoke Exposure: No 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 Had a concussion a couple years ago.) Hearing needs: No Vision needs: Yes (glasses) Review of Systems Const Denies chills and Denies fever(s) Card Denies chest pain, Denies dyspnea and Denies dyspnea on exertion Resp Denies cough, Denies dyspnea and Denies dyspnea on exertion GI Denies hematochezia and Denies change in bowel habits Denies hematuria Musc Denies back pain and Denies limited range of motion Neuro Denies focal weakness and Denies convulsions Psych Denies depression and Denies mood swings Physical Exam Vital Signs: BMI result Body Mass Index 31.8 Const General: comfortable and no acute distress Nutritional Appearance: obese Orientation/consciousness: patient oriented x3 Neck Neck: Yes no lymphadenopathy Resp Auscultation: clear to auscultation bilaterally Cardio Rhythm: regular rhythm GI Palpation (GI): Soft to palpation, nontender and no guarding Neuro General: patient oriented x3 Extrem Other: Left proximal thigh in the area near the groin is note of a subcutaneous mass, about 2 cm, mobile and well-defined Assessment & Plan Assessment & Plan (1) Subcutaneous mass: Code(s): R22.9 - Localized swelling, mass and lump, unspecified Category: Medical Plan: She has this palpable well-defined mass of the subcutaneous area on the left thigh. She wants this excised. This may be a lipoma or a lymph node. I explained the technique of excision under local anesthesia. I reviewed the risks including but not limited to bleeding and infections, as well as the benefits and alternatives. I reviewed with her what to expect postoperatively She understands and wants to proceed This will be done in the office on her next visit. Coding Level of Care Code New Pt Level 3 (29310) Diagnoses Subcutaneous mass R22.9
[2025-06-27 15:19] VITALS: BMI 31.8
== END 2025-06-27 15:39 | disposition home or self-care (01) ==
LOC: HO.HGS 15:06
PROVIDERS: PCP Physician Assistant Medical; Visit Provider Surgery
DX: R22.9 Localized swelling, mass and lump, unspecified (principal)
CPT/HCPCS: 99203

== ENCOUNTER 2025-08-02 13:37 | Outpatient (REF) | payer OTHER, SELFPAY | END 2025-08-02 13:38 | disposition home or self-care (01) | LOC: HO.LNP 13:37 | PROVIDERS: PCP Physician Assistant Medical; Visit Provider Surgery | DX: R22.2 Localized swelling, mass and lump, trunk (principal); M79.89 Other specified soft tissue disorders | CPT/HCPCS: 11403; 88304 ==

== ENCOUNTER 2025-08-02 13:40 | Outpatient (AMB) | payer OTHER, SELFPAY ==
--- NOTE | 2025-08-02 13:46 | MHC.OFFVIS ---
Vital Signs 08/02/25 13:50 Height 5 ft 8 in Weight 209 lb 0.007 oz BMI 31.8 Intake Visit Reasons: excision subcutaneous mass Intake Note: office procedure: excision subcutaneous mass Creative Director Required: No Accompanied by: Mother Allergies No Known Allergies Allergy (Verified 08/02/25 13:50) HPI HPI excision subcutaneous mass: Details: She is here for excision of the lipoma from the left proximal thigh. [facility] Medical History Subcutaneous mass Mass of left inguinal region Mass of soft tissue of thigh Mass of left thigh Muscle mass of leg Palpitations Chronic fatigue Positive MAURY (antinuclear antibody) Localized swelling, mass and lump, right lower limb Difficulty concentrating Muscle fasciculation Microalbuminuria Abnormal CBC Decreased GFR Anxiety and depression Concussion Mild memory disturbance Hyperlipidemia Chronic headaches Chronic neck pain Pre-diabetes Obesity Low vitamin D level Surgical History H/O dilation and curettage Family History Mother Anxiety Father Diabetes HTN (hypertension) Heart disease Thyroid disease Brother Diabetes Other FH: mental illness Substance abuse Social History Household Members: Spouse and Children Housing: House Alcohol intake: current Patient Tobacco Use Status: Former Tobacco user Tobacco use type: Cigarette Cigarette Packs Per Day: 0.5 Years Smoked: 15 e-Cigarette/Vaping Use: Never Used Second Hand Smoke Exposure: No 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 Had a concussion a couple years ago.) Hearing needs: No Vision needs: Yes (glasses) Physical Exam Vital Signs: BMI result Body Mass Index 31.8 Office Procedures Excision Details: The area of the left proximal thigh near the groin was prepped and draped. Lidocaine 1% was used for local anesthesia. I made an incision in the skin overlying this palpable mass using blade 15. This carried down sharply through the full-thickness of the skin and part of the subcutaneous layer until was able to visualize a lipomatous mass. I sharply dissected the lipomatous mass off of the rest of the subcutaneous layer until this has delivered. This measured about 3 x 2 cm. It was sent as a specimen. I closed the incision with full-thickness nylon 3-0 simple interrupted sutures. Dressings were applied. The procedure was completed. She tolerated procedure well. There were no immediate complications. She was given wound care instructions. [id number]-[id number]/arms/legs 3.1-4cm Procedure code (CPT) selection complete Assessment & Plan Assessment & Plan (1) Mass of soft tissue of thigh: Code(s): M79.89 - Other specified soft tissue disorders Category: Medical Plan: Excision was done in the office. She was given wound care instructions. She will be seen for follow-up for removal sutures. Coding Level of Care Code Procedure Only Diagnoses Mass of soft tissue of thigh M79.89 CPT Codes Trunk/Arms/Legs - CPT: 05992-qwiah/arms/legs 3.1-4cm ([id number])
[2025-08-02 13:50] VITALS: BMI 31.8
--- OUTSIDE RECORDS SUMMARY | 2025-08-02 19:07 | XMS_ITS | Clinical Summary ---
Author Organization [facility] Address [address] [place] [address] Phone Care Team Providers Care Cnc Specialist Name Role Phone Imelda Muñoz Primary Care [...] Encounters Date Type Department Care Team Description 07/11/2025 10:00 AM EDT Office Visit [facility] Orthopedics & Sports Medicine [address] [place] [address] Pacsale Neves PA-C Sprain of anterior talofibular ligament of right ankle, subsequent encounter (Primary Dx) 07/11/2025 Telephone [facility] Orthopedics & Sports Medicine [address] [place] [address] Pascale Neves PA-C [facility] ppwrk 06/11/2025 1:20 PM EDT Office Visit [facility] Orthopedics & Sports Medicine [address] [place] [address] Pascale Neves PA-C Sprain of anterior talofibular ligament of right ankle, subsequent encounter (Primary Dx) 06/05/2025 Transcribe Orders Virtual Department [address] [place] [address] System, Provider Not In, PhD Other intra-abdominal and pelvic swelling, mass and lump (Primary Dx) 2025 Telephone [facility] Orthopedics & Sports Medicine [address] [place] [address] Ronal Ramirez PA-C 05/28/2025 2:00 PM EDT Office Visit [facility] at [address] [phone] Ronal Ramirez PA-C Sprain of anterior talofibular ligament of right ankle, initial encounter (Primary Dx); Closed nondisplaced fracture of cuboid of right foot, initial encounter 05/28/2025 11:15 AM EDT - 05/28/2025 11:59 PM EDT Hospital Encounter [facility], X-Ray - [address] [address] Demetrio Conway PA-C Discharge Disposition: Home or Self Care 05/28/2025 9:50 AM EDT Office Visit [facility] Ur[facility] Care at [address] [address] Demetrio Conway PA-C Closed avulsion fracture of [...] 2024 ZOSTER VACCINES (1 of 2) 2024 COVID-19 VACCINE (5 - 2024- season) 2025 07/30/2024, 08/01/2021, 10/15/2020, Additional history exists SMOKING Hx and SMOKELESS TOBACCO SCREENING 06/11/2026 06/11/2025 Adult Td,Tdap Booster 06/28/2028 06/28/2018 , 07/18/2007, 11/11/1998 RSV VACCINE (1 - 1-dose 75+ series) 2049 INFLUENZA VACCINE Completed 07/02/2025, , 07/11/2021, Additional history exists HEPATITIS A VACCINES Aged [...] inal Result from Last 3 Months Insurance PPO [facility] [employer] [address] [place] [address]S [facility] [address] [place] [address] [place] [address] S [facility] [employer] [address] [place] [address] [facility] [employer] [address] [place] [address] PPO [employer] [facility] Care Teams Cnc Specialist Relationship Specialty Start Date End Date Imelda Muñoz PA [address] [place] [address] Dr Hardy [place], [place] [phone] PCP - General Physician Cold Storage Worker 06/06/25 Additional Source Comments The information contained in this document represents components of the legal health record. It is not the complete legal health record.[facility]
--- OUTSIDE RECORDS SUMMARY | 2025-08-02 19:07 | XMS_ITS | Encounter Summary ---
Author Organization [facility] [employer] [facility] Address [address] [place] [address] Phone Care Team Providers Care Patient Manager Name Role Phone Imelda Muñoz Primary Care Provide r Imelda Muñoz Primary Care Provide r Reason for Referral * MRI/CAT Scan - Authorized Specialty Diagnoses / Procedures Referred By Contac t Referred To Contact Radiology Diagnoses Other intra-abdominal and pelvic swelling, mass and lump Procedures MRI Pelvis (GI/) System, Provider Not In, PhD [facility] [address] [address] Referral ID Status Reason Start Date Expiration Date V isits Requested Visits Authorized [id number] Authorized 06/05/2025 06/05/2026 1 1 Encounter Details Date Type Department Care Team (Late st Contact Info) Description 06/05/2025 Transcribe Orders Virtual Department [address] [place] [address] System, Provider Not In, PhD [facility] [address] [address] Other intra-abdominal and pelvic swelling, mass and [...] Primary documented in this encounter Care Teams Patient Manager Relationship Specialty Start Date End Date Imelda Muñoz PA [address] [place] [address] PCP - General Physician Die Reamer 05/28/25 06/05/25 Imelda Muñoz PA [address] [place] [address] [place] [address] PCP - General Physician Die Reamer 06/06/25 documented as of this encounter Additional Source Comments The information contained in this document represents components of the legal health record. It is not the complete legal health record.[facility]
--- OUTSIDE RECORDS SUMMARY | 2025-08-02 19:07 | XMS_ITS | Encounter Summary ---
Author Organization [facility] Address [address] [place] [address] Phone Care Team Providers Care Strategy Consultant Name Role Phone Imelda Muñoz Primary Care Provide r Imelda Muñoz Primary Care Provide r Encounter Details Date Type Department Care Team (Late st Contact Info) Description 2025 Telephone [facility] Orthopedics & Sports Medicine [address] [place], [place] [phone] Ronal Ramirez PA-C [address] [place] [address] Orthopedics & Sports Medicine, [facility]. [place], [place] [phone] [email or web address] Social History Tobacco Use Types Packs/Day Years [...] Part: Right ankle Name of Insurance Company: [facility] [employer] workers compensation Claim Number: [id number] Compliance Auditor: Padmini Osorio Adjusters Adjusters documented in this encounter Plan of Treatment Not on file documented as of this encounter Visit Diagnoses Not on filedocumented in this encounter Care Teams Strategy Consultant Relationship Specialty Start Date End Date Imelda Muñoz PA [address] [place] [address] PCP - General Physician Wafer Fab Technician 05/28/25 06/05/25 Imelda Muñoz PA [address] [place] [address] [place] [address] PCP - General Physician Wafer Fab Technician 06/06/25 documented as of this encounter Additional Source Comments The information contained in this document represents components of the legal health record. It is not the complete legal health record.[facility]
== END 2025-08-02 14:16 | disposition home or self-care (01) ==
PROVIDERS: PCP Physician Assistant Medical; Visit Provider Surgery
DX: D17.24 Benign lipomatous neoplasm of skin and subcutaneous tissue of left leg (principal)
CPT/HCPCS: 11403

== ENCOUNTER 2025-08-16 10:54 | Outpatient (AMB) | payer OTHER, SELFPAY ==
--- NOTE | 2025-08-16 11:04 | MHC.OFFVIS ---
Vital Signs 08/16/25 11:13 Height 5 ft 8 in Weight 207 lb 3.752 oz BMI 31.5 Intake Visit Reasons: s/p excise subcu mass Intake Note: Patient is seen in office for post op assessment post excision of subcutaneous mass of the left groin. Pt c/o: admits to minimal redness, bruise and sore, has stitches that need to be removed Flight Operations Coordinator Required: No Accompanied by: Family/Other Allergies No Known Allergies Allergy (Verified 08/16/25 11:13) HPI HPI s/p excise subcu mass: Details: She had undergone excision of a lipoma from the thigh last 08/02/2025. She tolerated the procedure well and currently denies complaints. [facility] Medical History Subcutaneous mass Mass of left inguinal region Mass of soft tissue of thigh Mass of left thigh Muscle mass of leg Palpitations Chronic fatigue Positive MAURY (antinuclear antibody) Localized swelling, mass and lump, right lower limb Difficulty concentrating Muscle fasciculation Microalbuminuria Abnormal CBC Decreased GFR Anxiety and depression Concussion Mild memory disturbance Hyperlipidemia Chronic headaches Chronic neck pain Pre-diabetes Obesity Low vitamin D level Surgical History H/O dilation and curettage Family History Mother Anxiety Father Diabetes HTN (hypertension) Heart disease Thyroid disease Brother Diabetes Other FH: mental illness Substance abuse Social History Household Members: Spouse and Children Housing: House Alcohol intake: current Patient Tobacco Use Status: Former Tobacco user Tobacco use type: Cigarette Cigarette Packs Per Day: 0.5 Years Smoked: 15 e-Cigarette/Vaping Use: Never Used Second Hand Smoke Exposure: No 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 Had a concussion a couple years ago.) Hearing needs: No Vision needs: Yes (glasses) Review of Systems Const Denies chills and Denies fever(s) Physical Exam Vital Signs: BMI result Body Mass Index 31.5 Const General: comfortable and no acute distress Extrem Other: Excision site on the thigh is well healed, not infected Assessment & Plan Assessment & Plan (1) Mass of soft tissue of thigh: Code(s): M79.89 - Other specified soft tissue disorders Category: Medical Plan: Status post excision. The surgical site is well healed. Her sutures were removed. His path report shows a lipoma. She can follow up on a p.r.n. basis. Coding Level of Care Code Global (08518) Diagnoses Mass of soft tissue of thigh M79.89
[2025-08-16 11:13] VITALS: BMI 31.5
== END 2025-08-16 11:39 | disposition home or self-care (01) ==
LOC: HO.HGS 10:55
PROVIDERS: PCP Physician Assistant Medical; Visit Provider Surgery
DX: M79.89 Other specified soft tissue disorders (principal)
CPT/HCPCS: 99024

== ENCOUNTER 2025-09-04 12:38 | Outpatient (REF) | payer OTHER, SELFPAY ==
--- OUTSIDE RECORDS SUMMARY | 2025-09-04 13:42 | XMS_ITS | Encounter Summary ---
Author Organization [facility] Address [address] [place] [address] Phone Care Team Providers Care Hydrostatic Tubing Tester Name Role Phone Imelda Muñoz Primary Care Provide r Imelda Mñuoz Primary Care Provide r Encounter Details Date Type Department Care Team (Late st Contact Info) Description 2025 Telephone [facility] Orthopedics and Sports Medicine Clinic [address] [place], [place] [phone] Ronal Ramirez PA-C [address] [place] [address] Orthopedics & Sports Medicine, [place], [place] [phone] [email or web address] Social History Tobacco Use Types Packs/Day Years [...] Part: Right ankle Name of Insurance Company: [facility] [place] Claim Number: [id number] Psychologist Developmental: Padmini Osorio Adjusters Adjusters documented in this encounter Plan of Treatment Not on file documented as of this encounter Visit Diagnoses Not on filedocumented in this encounter Care Teams Hydrostatic Tubing Tester Relationship Specialty Start Date End Date Imelda Muñoz PA [address] [place] [address] PCP - General Physician Billing Rep 05/28/25 06/05/25 Imelda Muñoz PA [address] [place] [address] [place] [address] PCP - General Physician Billing Rep 06/06/25 documented as of this encounter Additional Source Comments The information contained in this document represents components of the legal health record. It is not the complete legal health record.[facility]
--- OUTSIDE RECORDS SUMMARY | 2025-09-04 13:42 | XMS_ITS | Clinical Summary ---
Author Organization [facility] Address [address] [place] [address] Phone Care Team Providers Care White Sugar Syrup Operator Name Role Phone Imelda Muñoz Primary [...] Description 07/11/2025 10:00 AM EDT Office Visit [facility] Medicine Clinic [address] [place] [address] Pascale Neves PA-C Sprain of anterior talofibular ligament of right ankle, subsequent encounter (Primary Dx) 07/11/2025 Telephone [facility] Orthopedics and Sports Medicine [address] [address] Pascale Neves PA-C [facility] ppwrk 06/11/2025 1:20 PM EDT Office Visit [facility] [address] [place] [address] Pascale Neves PA-C Sprain of anterior talofibular ligament of right ankle, subsequent encounter (Primary Dx) 06/05/2025 Transcribe Orders Virtual Department [address] [place] [address] System, Provider Not In, PhD Other intra-abdominal and pelvic swelling, mass and lump (Primary Dx) from Last 3 Months Immunizations Immunization Administration [...] VACCINES (1 of 2) 2024 COVID-19 VACCINE ( - season) 2025 07/30/2024, 08/01/2021, 10/15/2020, Additional history [...] topic Medical Devices Not on file Insurance O [employer] [address] PPO [employer] [address] [place] [address] [place] [address] [place] [address] [facility] [employer] [place] [address] [facility] [address] [place] [address]S [employer] S [employer] [place] [address]S [facility] Care Teams White Sugar Syrup Operator Relationship Specialty Start Date End Date Imelda Muñoz PA [address] [place] [address] [place] [address] PCP - General Physician Critical Care Rn 06/06/25 Additional Source Comments The information contained in this document represents components of the legal health record. It is not the complete legal health record.[facility]
--- OUTSIDE RECORDS SUMMARY | 2025-09-04 13:42 | XMS_ITS | Encounter Summary ---
Author Organization [facility] Address [address] [place] [address] Phone Care Team Providers Care Oil Spraying Machine Operator Name Role Phone Imelda Muñoz Primary Care Provide r Imelda Muñoz Primary Care Provide r Reason for Referral * MRI/CAT Scan - Authorized Specialty Diagnoses / Procedures Referred By Contac t Referred To Contact Radiology Diagnoses Other intra-abdominal and pelvic swelling, mass and lump Procedures MRI Pelvis (GI/) System, Provider Not In, PhD [facility] [address] [address] Referral ID Status Reason Start Date Expiration Date V isits Requested Visits Authorized [id number] Authorized 06/05/2025 06/05/2026 1 1 Encounter Details Date Type Department Care Team (Late st Contact Info) Description 06/05/2025 Transcribe Orders Virtual Department [address] [place] [address] System, Provider Not In, PhD [facility] [address] [address] Other intra-abdominal and pelvic swelling, mass and [...] Primary documented in this encounter Care Teams Oil Spraying Machine Operator Relationship Specialty Start Date End Date Imelda Muñoz PA [address] [place] [address] PCP - General Physician Apron Worker 05/28/25 06/05/25 Imelda Muñoz PA [address] [place] [address] [place] [address] PCP - General Physician Apron Worker 06/06/25 documented as of this encounter Additional Source Comments The information contained in this document represents components of the legal health record. It is not the complete legal health record.[facility]
--- OUTSIDE RECORDS SUMMARY | 2025-09-04 13:42 | XMS_ITS | Clinical Summary ---
Author Organization [facility] Address [address] [place] [address] Phone Care Team Providers Care Revenue Accounting Manager Name Role Phone Unavailable Primary Care Provider Unavailabl e Social History Tobacco Use Types Packs/Day Years [...] of 3 - 19+ 3-dose series) 1993 COVID-19 Vaccine (4 - 2024- season) 2025 07/30/2024, 08/01/2021, 10/15/2020, Additional history exists Influenza Vaccine (#1) 2025 , 07/11/2021, 06/28/2018, [...] patient's age to complete this topic Insurance CIGNA CIGNA
[2025-09-04 15:07] LABS: Anion Gap 13 (12-20); Blood Urea Nitrogen 20 mg/dL (9-16); Calcium 9.8 mg/dL (8.4-10.2); Carbon Dioxide 27 mmol/L (22-29); Chloride 106 mmol/L (96-108); Estimated Glomerular Filt Rate 40; Potassium 4.2 mmol/L (3.3-5.1); Sodium 142 mmol/L (135-145)
[2025-09-04 15:16] LABS: Appearance Urine Clear; Glucose Urine UA Negative (Negative); PH 6.5 (5.0-9.0); Specific Gravity - Urine 1.015 (1.005-1.025); UMIC TRIGGER UA YES
[2025-09-04 16:17] LABS: Total Protein Urine Random 32 mg/dL (<12)
== END 2025-09-04 12:39 | disposition home or self-care (01) ==
LOC: HO.WFDLDS 12:38
PROVIDERS: Visit Provider Internal Medicine Hypertension Specialist
DX: R80.9 Proteinuria, unspecified (principal)
CPT/HCPCS: 36415; 80048; 81001; 82570; 84156